=== PATIENT | female | born 1960 | race African-American/Black ===

== ENCOUNTER 2019-07-07 17:26 | Emergency (ER) | payer OTHER ==
[~2019-07-07] VITALS: Ht 162.6 cm; Wt 86.2 kg
--- OUTSIDE RECORDS SUMMARY | 2019-07-07 17:31 | XMS REPORT ---
[facility] Address Unknown Phone Unavailable Care Team Providers Care Lead Programmer Name Role Phone UNKNOWN, REFFERING PP Unavailable REINALDO, JOSE MIGUEL Unavailable Unavailable Payers Payer Name Policy Type Policy Number Effective Date Expiration Date Problems This patient has no known problems. Allergies, Adverse Reactions, Alerts Allergy Name Allergy Type Status Severity Reaction(s) Onset Date Inactive Date Treating Clinician Comments No Known Drug Allergies DA Active U 2019-07-07 00:00:00 No Known Drug Allergies DA Active U 2019-05-01 00:00:00 codeine DA Active U 2014-06-08 00:00:00 Medications This patient has no known medications. Encounters Start Date/Time End Date/Time Encounter Type Admission Type Attending Clinicians Care Facility Care Department Encounter ID 2019-07-03 01:49:27 2019-07-03 01:49:27 Emergency [facility] [id number] 2019-06-30 20:01:50 2019-06-30 20:01:50 Emergency [facility] [id number] 2019-06-30 07:55:39 2019-06-30 07:55:39 Emergency [facility] [id number] 2019-06-29 11:36:25 2019-06-29 11:36:25 Emergency [facility] [id number] 2019-06-28 16:02:38 2019-06-28 16:02:38 Emergency [facility] [id number] 2019-06-28 15:42:14 2019-06-28 15:42:14 Emergency [facility] [id number] 2019-06-28 08:36:00 2019-06-28 08:36:00 [facility] [id number] 2019-06-27 17:09:00 2019-06-27 17:09:00 [facility] [id number] 2019-06-27 00:02:33 2019-06-27 00:02:33 Emergency [facility] [id number] 2019-06-26 01:04:43 2019-06-26 01:04:43 Emergency [facility] [id number] 2019-06-25 16:23:59 2019-06-25 16:23:59 Emergency [facility] [id number] 2019-06-24 13:08:51 2019-06-24 13:08:51 [facility] [id number] 2019-06-24 12:01:59 2019-06-24 12:01:59 Emergency [facility] [id number] 2019-06-23 08:15:00 2019-06-23 08:15:00 [facility] [id number] 2019-06-22 13:01:19 2019-06-22 13:01:19 Emergency [facility] [id number] 2019-06-20 22:39:19 2019-06-20 22:39:19 [facility] [id number] 2019-06-20 22:03:12 2019-06-20 22:03:12 Emergency [facility] [id number] 2019-06-12 01:30:44 2019-06-12 01:30:44 [facility] [id number] 2019-06-11 11:27:07 2019-06-11 11:27:07 [facility] [id number] 2019-06-11 10:49:54 2019-06-11 10:49:54 Emergency [facility] [id number] 2019-06-10 23:24:38 2019-06-10 23:24:38 Emergency [facility] [id number] 2019-06-04 18:18:43 2019-06-04 18:18:43 Emergency [facility] [id number] 2019-06-04 08:39:05 2019-06-04 08:39:05 [facility] [id number] 2019-05-19 03:01:54 2019-05-19 03:01:54 Emergency [facility] [id number] 2019-05-19 01:22:44 2019-05-19 01:22:44 Emergency [facility] [id number] 2019-05-18 23:23:57 2019-05-18 23:23:57 Emergency [facility] [id number] 2019-05-09 16:07:00 2019-05-09 16:07:00 Emergency [facility] [id number] 2019-05-09 00:05:32 2019-05-09 00:05:32 Emergency [facility] [id number] 2019-04-30 15:23:36 2019-04-30 15:23:36 Emergency [facility] [id number] 2019-04-30 13:21:58 2019-04-30 13:21:58 Emergency [facility] [id number] 2019-04-30 13:03:53 2019-04-30 13:03:53 Emergency [facility] [id number] 2019-04-24 04:28:39 2019-04-24 04:28:39 Emergency [facility] [id number] 2019-04-24 02:43:50 2019-04-24 02:43:50 Emergency [facility] [id number] 2019-04-23 00:00:00 2019-04-23 00:00:00 Outpatient [facility] [id number] 2019-04-18 09:02:02 2019-04-18 09:02:02 Emergency [facility] [id number] 2019-04-18 08:07:03 2019-04-18 08:07:03 Emergency [facility] [id number] 2019-04-13 03:58:36 2019-04-13 03:58:36 Emergency [facility] [id number] 2019-04-13 00:33:12 2019-04-13 00:33:12 Emergency [facility] [id number] 2019-04-01 01:11:51 2019-04-01 01:11:51 Emergency [facility] [id number] 2019-03-31 21:38:40 2019-03-31 21:38:40 Emergency [facility] [id number] 2019-03-08 01:08:46 2019-03-08 01:08:46 Emergency [facility] [id number] 2019-03-08 00:10:58 2019-03-08 00:10:58 Emergency [facility] [id number] 2019-02-15 02:28:07 2019-02-15 02:28:07 Emergency [facility] [id number] 2019-02-15 01:19:12 2019-02-15 01:19:12 [facility] [id number] 2018-10-09 05:57:53 2018-10-09 05:57:53 Emergency [facility] [id number] 2018-10-09 03:58:35 2018-10-09 03:58:35 [facility] [id number] 2017-11-07 20:16:00 2017-11-07 20:16:00 Emergency [facility] [id number] Results Test Description Test Time Test Comments Text Results Atomic Results Result Comments B-TYPE NATRIURETIC PEPTIDE 2019-07-07 10:44:00 B-TYPE NATRIURETIC PEPTIDE (test code=BNP) 29.71 pgram/mL 0-100 BASIC METABOLIC [id number] 09:44:00* Test Item Value Reference Range Comments SODIUM (test code=NA) 143 mmol/L 136-145 POTASSIUM (test code=K) 4.3 mmol/L 3.5-5.1 CHLORIDE (test code=CL) 111.0 mmol/L 98-107 CARBON DIOXIDE (test code=CO2) 27.0 mmol/L 21-32 ANION GAP (test code=GAP) 9.3 10-20 GLUCOSE (test code=GLU) 82 mg/dL 74-106 BLOOD UREA NITROGEN (test code=BUN) 16 mg/dL 7-18 GLOMERULAR FILTRATION RATE (test code=GFR) > 60 mL/min >=60 Estimated GFR by using Modified MDRD formula.Chronic kidney disease is defined as either kidney damageor GFR <60 mL/min/1.73 m2 for >3 months. CREATININE (test code=CREAT) 1.00 mg/dL 0.55-1.02 Note change in reference range due to change in reagent. BUN/CREATININE RATIO (test code=BUN/CREA) 16.0 10-20 CALCIUM (test code=CA) 8.8 mg/dL 8.5-10.1 [id number] 09:44:00* Test Item Value Reference Range Comments TROPONIN-I (test code=TROPI) <0.015 ng/mL 0-0.045 CBC W/O [id number] 09:21:00* Test Item Value Reference Range Comments WHITE BLOOD CELL (test code=WBC) 4.8 K/mm3 4.5-12.5 RED BLOOD CELL (test code=RBC) 2.80 mill/mm3 3.7-5.2 HEMOGLOBIN (test code=HGB) 8.1 gram/dL 11.5-15.5 HEMATOCRIT (test code=HCT) 27.3 % 36.0-46.0 MEAN CELL VOLUME (test code=MCV) 97.5 fL 80-98 MEAN CELL HGB (test code=MCH) 28.9 picogram 27.0-33.0 MEAN CELL HGB CONCETRATION (test code=MCHC) 29.7 gram/dL 33.0-36.0 RED CELL DISTRIBUTION WIDTH (test code=RDW) 13.3 % 11.6-16.2 PLATELET COUNT (test code=PLT) 170 K/mm3 150-450 MEAN PLATELET VOLUME (test code=MPV) 10.3 fL 6.7-11.0 BASIC METABOLIC [id number] 09:10:00* Test Item Value Reference Range Comments SODIUM (test code=NA) 143 mmol/L 136-145 POTASSIUM (test code=K) 4.3 mmol/L 3.5-5.1 CHLORIDE (test code=CL) 111.0 mmol/L 98-107 CARBON DIOXIDE (test code=CO2) mmol/L 21-32 ANION GAP (test code=GAP) 10-20 GLUCOSE (test code=GLU) mg/dL 74-106 BLOOD UREA NITROGEN (test code=BUN) mg/dL 7-18 GLOMERULAR FILTRATION RATE (test code=GFR) mL/min >=60 CREATININE (test code=CREAT) mg/dL 0.55-1.02 BUN/CREATININE RATIO (test code=BUN/CREA) 10-20 CALCIUM (test code=CA) mg/dL 8.5-10.1 [id number] 09:10:00* Test Item Value Reference Range Comments TROPONIN-I (test code=TROPI) ng/mL 0-0.045 - XR CHEST 1 [id number] 08:50:00 FAX: Domingo Ramos [phone] [place]: [address]: REG Name: VANESSA AMAYA [facility] : [birth year] Age/S: 58/F [address] [facility] Unit #: [id number] Loc: [place] [address] Phys: Domingo Frazier MD Acct: [id number] Dis Date: Status: REG ER PHONE #: [phone] Exam Date: 07/07/2019 08 FAX #: [phone] Reason: Shortness of Breath EXAMS: CPT CODE: [id number] XR CHEST 1 V 36362 REASON FOR EXAM: Shortness of Breath Exam Order Date: 07/07/2019 8:17 AM Ordering M.D.: Domingo Frazier MD PROCEDURE: - XR CHEST 1 V COMPARISON: Frontal chest radiograph May 12, 2019 FINDINGS: The lungs are clear other than mild subsegmental atelectasis in the bases. There is no pleural effusion or pneumothorax. Pulmonary vascula rity is within normal limits. Cardiomediastinal silhouette is norm al in size for technique. The mediastinal contours are within normal limit s. Degenerative changes are present in the spine. Th e visualized upper abdomen is within normal limits. IMPR ESSION: No acute cardiopulmonary process. at 0850 Reported and signed by: Sergio Lopez MD CC: Domingo Frazier MD Technologist: Annette Clement(R); Mady Morgan RT(R) Trnscrd Date/Time/By: 07/07/2019 (0850) : By: [email or web address] Orig Print D /T: S: 07/07/2019 (0753) PAGE 1 S igned Report Blood [id number] 21:01:31No growth at 5 days.Blood [id number] 21:01:31No growth at 5 days.Pathology Review of Peripheral [id number] 14:32:35.Manual [id number] 14:28:59* Test Item Value Reference Range Comments Segs Man (test code=Segs Man) 32.0 % 36.0-70.0 Band Man (test code=Band Man) 0.0 % 0.0-6.0 Lymph Man (test code=Lymph Man) 51.0 % 12.0-44.0 Monocyte Man (test code=Monocyte Man) 9.0 % 0.0-11.0 Eos Man (test code=Eos Man) 8.0 % 0.0-7.0 Basophil Man (test code=Basophil Man) 0.0 0.0-2.0 Neut Man Abs (test code=Neut Man Abs) 1.2 x10 1.6-7.4 Lymph Man Abs (test code=Lymph Man Abs) 2.0 x10 0.5-4.6 Hendry Man Abs (test code=Hendry Man Abs) 0.4 x10 0.0-1.2 Eos Man Abs (test code=Eos Man Abs) 0.31 x10 0.00-0.74 Baso Man Abs (test code=Baso Man Abs) 0.00 x10 0.00-0.21 RBC Morph (test code=RBC Morph) As Indicated Normal Hypochromia (test code=Hypochromia) 1+ None Seen Anisocyte (test code=Anisocyte) None None Microcyte (test code=Microcyte) None Seen None Seen Macrocyte (test code=Macrocyte) None Seen None Seen Poik (test code=Poik) None Seen None Seen Polychrom (test code=Polychrom) None Seen None Seen Acanthocyte (test code=Acanthocyte) None Seen None Seen Baso Stippling RBC (test code=Baso Stippling RBC) None Seen None Seen Schistocytes (test code=Schistocytes) 1+ None Seen Plt Estimation (test code=Plt Estimation) Normal Normal IG [id number] 14:28:59* Test Item Value Reference Range Comments IG (test code=IG) 0.0 % 0.0-5.0 IG Abs (test code=IG Abs) 0 x10 Manual [id number] 14:28:59* Test Item Value Reference Range Comments Segs Man (test code=Segs Man) 32.0 % 36.0-70.0 Band Man (test code=Band Man) 0.0 % 0.0-6.0 Lymph Man (test code=Lymph Man) 51.0 % 12.0-44.0 Monocyte Man (test code=Monocyte Man) 9.0 % 0.0-11.0 Eos Man (test code=Eos Man) 8.0 % 0.0-7.0 Basophil Man (test code=Basophil Man) 0.0 0.0-2.0 Neut Man Abs (test code=Neut Man Abs) 1.2 x10 1.6-7.4 Lymph Man Abs (test code=Lymph Man Abs) 2.0 x10 0.5-4.6 Hendry Man Abs (test code=Hendry Man Abs) 0.4 x10 0.0-1.2 Eos Man Abs (test code=Eos Man Abs) 0.31 x10 0.00-0.74 Baso Man Abs (test code=Baso Man Abs) 0.00 x10 0.00-0.21 RBC Morph (test code=RBC Morph) As Indicated Normal Hypochromia (test code=Hypochromia) 1+ None Seen Anisocyte (test code=Anisocyte) None None Microcyte (test code=Microcyte) None Seen None Seen Macrocyte (test code=Macrocyte) None Seen None Seen Poik (test code=Poik) None Seen None Seen Polychrom (test code=Polychrom) None Seen None Seen Acanthocyte (test code=Acanthocyte) None Seen None Seen Baso Stippling RBC (test code=Baso Stippling RBC) None Seen None Seen Schistocytes (test code=Schistocytes) 1+ None Seen Plt Estimation (test code=Plt Estimation) Normal Normal Path Rev (test code=Path Rev) Not Indicated Drugs of Abuse Urine [id number] 13:55:36* Test Item Value Reference Range Comments Amphetamine Screen Ur (test code=Amphetamine Screen Ur) Negative Negative For diagnostic purposes only. Positive results should always be assessed in conjunction with a patient's medical history. Barbiturate Screen Ur (test code=Barbiturate Screen Ur) Negative Negative Benzodiazepines Ur (test code=Benzodiazepines Ur) Negative Negative Cocaine Screen Ur (test code=Cocaine Screen Ur) POSITIVE Negative U Methadone (test code=U Methadone) Negative Negative Opiate Screen Ur (test code=Opiate Screen Ur) Negative Negative U PCP Scrn (test code=U PCP Scrn) Negative Negative U Propoxyphene (test code=U Propoxyphene) Negative Negative Cannabinoid Screen Ur (test code=Cannabinoid Screen Ur) Negative Negative Complete Blood Count with [id number] 13:53:50* Test Item Value Reference Range Comments WBC (test code=WBC) 3.9 x10 4.4-10.5 RBC (test code=RBC) 3.09 x10 3.75-5.20 Hgb (test code=Hgb) 8.9 g/dL 12.2-14.8 MCV (test code=MCV) 92.90 fL 80.00-100.00 Hct (test code=Hct) 28.7 % 36.5-44.4 MCHC (test code=MCHC) 31.00 g/dL 32.00-37.50 RDW CV (test code=RDW CV) 13.3 % 11.5-14.5 MCH (test code=MCH) 28.8 pg 27.0-32.5 Platelets (test code=Platelets) 199.0 x10 140.0-440.0 MPV (test code=MPV) 10.7 fL Slide Review (test code=Slide Review) Manual Auto Result created by [email or web address]_SLIDE_REV_AUTO [email or web address] nRBC (test code=nRBC) 0 NRBC Abs (test code=NRBC Abs) 0.00 x10 Pos Diff XN (test code=Pos Diff XN) A IPF (test code=IPF) 0 % Urinalysis [id number] 13:53:41* Test Item Value Reference Range Comments UA WBC (test code=UA WBC) 6-10 0-5 UA RBC (test code=UA RBC) 0-5 0-5 UA Bacteria (test code=UA Bacteria) Moderate UA Squam Epithelial (test code=UA Squam Epithelial) 30-50 Urinalysis with Microscopic if [id number] 13:45:03* Test Item Value Reference Range Comments UA Color (test code=UA Color) YELLO Yellow UA Appear (test code=UA Appear) CLEAR Clear UA pH (test code=UA pH) 5 UA Spec Grav (test code=UA Spec Grav) 1.008 1.001-1.035 UA Glucose (test code=UA Glucose) NEG Negative UA Ketones (test code=UA Ketones) NEG Negative UA Blood (test code=UA Blood) NEG Negative UA Protein (test code=UA Protein) NEG Negative UA Bili (test code=UA Bili) NEG Negative UA Urobilinogen (test code=UA Urobilinogen) 0.2 mg/dL UA Nitrite (test code=UA Nitrite) NEG Negative UA Leuk Est (test code=UA Leuk Est) 500 cells/mcL Negative UA Micro Ind? (test code=UA Micro Ind?) Indicated Not Indicated Result created by rule GL_SJM_UA_MICRO_IND Comprehensive Metabolic [id number] 13:43:17* Test Item Value Reference Range Comments Sodium Level (test code=Sodium Level) 145.0 mmol/L 135.0-145.0 Potassium Level (test code=Potassium Level) 4.4 mmol/L 3.5-5.1 Chloride Level (test code=Chloride Level) 110 mmol/L 98-105 CO2 (test code=CO2) 26 mmol/L 22-29 Anion Gap (test code=Anion Gap) 9 mmol/L 7-16 BUN (test code=BUN) 8.70 mg/dL 6.00-20.00 Creatinine Level (test code=Creatinine Level) 1.10 mg/dL 0.50-0.90 BUN/Creat Ratio (test code=BUN/Creat Ratio) 8 Glucose Level (test code=Glucose Level) 83 mg/dL 70-115 Calcium Level (test code=Calcium Level) 8.5 mg/dL 8.3-10.5 Alk Phos (test code=Alk Phos) 82 U/L 35-104 Bilirubin Total (test code=Bilirubin Total) 0.6 mg/dL 0.1-0.9 Albumin Level (test code=Albumin Level) 3.2 g/dL 3.5-5.2 Protein Total (test code=Protein Total) 6.3 g/dL 6.4-8.3 ALT (test code=ALT) 133 U/L 1-33 AST (test code=AST) 255 U/L 1-32 Globulin (test code=Globulin) 3.1 g/dL 2.9-3.1 A/G Ratio (test code=A/G Ratio) 1.0 ratio Comprehensive Metabolic [id number] 13:43:17* Test Item Value Reference Range Comments Sodium Level (test code=Sodium Level) 145.0 mmol/L 135.0-145.0 Potassium Level (test code=Potassium Level) 4.4 mmol/L 3.5-5.1 Chloride Level (test code=Chloride Level) 110 mmol/L 98-105 CO2 (test code=CO2) 26 mmol/L 22-29 Anion Gap (test code=Anion Gap) 9 mmol/L 7-16 BUN (test code=BUN) 8.70 mg/dL 6.00-20.00 Creatinine Level (test code=Creatinine Level) 1.10 mg/dL 0.50-0.90 BUN/Creat Ratio (test code=BUN/Creat Ratio) 8 Glucose Level (test code=Glucose Level) 83 mg/dL 70-115 Calcium Level (test code=Calcium Level) 8.5 mg/dL 8.3-10.5 Alk Phos (test code=Alk Phos) 82 U/L 35-104 Bilirubin Total (test code=Bilirubin Total) 0.6 mg/dL 0.1-0.9 Albumin Level (test code=Albumin Level) 3.2 g/dL 3.5-5.2 Protein Total (test code=Protein Total) 6.3 g/dL 6.4-8.3 ALT (test code=ALT) 133 U/L 1-33 AST (test code=AST) 255 U/L 1-32 Globulin (test code=Globulin) 3.1 g/dL 2.9-3.1 A/G Ratio (test code=A/G Ratio) 1.0 ratio eGFR AA (test code=eGFR AA) >60 mL/min/1.73 m2 eGFR (estimated Glomerular Filtration Rate) is an estimated value, calculated from the patient's serum creatinine using the MDRD equation. It is NOT the patient's actual GFR. The eGFR provides a more clinically useful measure of kidney disease than serum creatinine alone.This calculation takes sex and race into account, if the information is provided. If the race is not provided, and the patient is -[place], multiply by 1.212. If sex is not provided, and the patient is female, multiply by 0.742. Results for patients <18 years of age have not been validated by the MDRD study and should be interpreted with caution. eGFR Result Interpretation:eGFR > or=60 is in the Normal RangeeGFR < 60 may mean kidney diseaseeGFR < 15 may mean kidney failure Ranges recommended by the National Kidney Foundation, http://nkdep.nih.gov Alcohol [id number] 13:43:17* Test Item Value Reference Range Comments Ethanol Level (test code=Ethanol Level) <0.00 g/dL 0.00-0.01 Intoxicated 0.080 g/dL or more Ethanol Inst (test code=Ethanol Inst) <0 Comprehensive Metabolic [id number] 13:43:17* Test Item Value Reference Range Comments Sodium Level (test code=Sodium Level) 145.0 mmol/L 135.0-145.0 Potassium Level (test code=Potassium Level) 4.4 mmol/L 3.5-5.1 Chloride Level (test code=Chloride Level) 110 mmol/L 98-105 CO2 (test code=CO2) 26 mmol/L 22-29 Anion Gap (test code=Anion Gap) 9 mmol/L 7-16 BUN (test code=BUN) 8.70 mg/dL 6.00-20.00 Creatinine Level (test code=Creatinine Level) 1.10 mg/dL 0.50-0.90 BUN/Creat Ratio (test code=BUN/Creat Ratio) 8 Glucose Level (test code=Glucose Level) 83 mg/dL 70-115 Calcium Level (test code=Calcium Level) 8.5 mg/dL 8.3-10.5 Alk Phos (test code=Alk Phos) 82 U/L 35-104 Bilirubin Total (test code=Bilirubin Total) 0.6 mg/dL 0.1-0.9 Albumin Level (test code=Albumin Level) 3.2 g/dL 3.5-5.2 Protein Total (test code=Protein Total) 6.3 g/dL 6.4-8.3 ALT (test code=ALT) 133 U/L 1-33 AST (test code=AST) 255 U/L 1-32 Globulin (test code=Globulin) 3.1 g/dL 2.9-3.1 A/G Ratio (test code=A/G Ratio) 1.0 ratio eGFR AA (test code=eGFR AA) >60 mL/min/1.73 m2 eGFR (estimated Glomerular Filtration Rate) is an estimated value, calculated from the patient's serum creatinine using the MDRD equation. It is NOT the patient's actual GFR. The eGFR provides a more clinically useful measure of kidney disease than serum creatinine alone.This calculation takes sex and race into account, if the information is provided. If the race is not provided, and the patient is -[place], multiply by 1.212. If sex is not provided, and the patient is female, multiply by 0.742. Results for patients <18 years of age have not been validated by the MDRD study and should be interpreted with caution. eGFR Result Interpretation:eGFR > or=60 is in the Normal RangeeGFR < 60 may mean kidney diseaseeGFR < 15 may mean kidney failure Ranges recommended by the National Kidney Foundation, http://nkdep.nih.gov eGFR Non-AA (test code=eGFR Non-AA) 51.38 mL/min/1.73 m2 eGFR (estimated Glomerular Filtration Rate) is an estimated value, calculated from the patient's serum creatinine using the MDRD equation. It is NOT the patient's actual GFR. The eGFR provides a more clinically useful measure of kidney disease than serum creatinine alone.This calculation takes sex and race into account, if the information is provided. If the race is not provided, and the patient is -[place], multiply by 1.212. If sex is not provided, and the patient is female, multiply by 0.742. Results for patients <18 years of age have not been validated by the MDRD study and should be interpreted with caution. eGFR Result Interpretation:eGFR > or=60 is in the Normal RangeeGFR < 60 may mean kidney diseaseeGFR < 15 may mean kidney failure Ranges recommended by the National Kidney Foundation, http://nkdep.nih.gov Troponin [id number] 01:14:13* Test Item Value Reference Range Comments Troponin-T (test code=Troponin-T) 26.180 ng/L 0.000-14.000 Critical results called to jessica cm at 06/09/2019 01:14:06 CDT by og. Read back and verified? yesThe CV of the assay at 99th percentile for both male and female patient population is < 10%. A rise and fall in ROHITH with at least one value above the 99th percentile with clinical evidence of myocardial ischemia would support a diagnosis of AMI. A delta of at least 20% is recommended to access acute changes in results above the 99th percentile in serial measurements. Stable ROHITH levels (<20%) delta above the 99th percentile URL would support a diagnosis of chronic myocardial injury. IG [id number] 20:59:38* Test Item Value Reference Range Comments IG (test code=IG) 0.2 % 0.0-5.0 IG Abs (test code=IG Abs) 0 x10 Manual [id number] 20:59:16* Test Item Value Reference Range Comments Segs Man (test code=Segs Man) 22.0 % 36.0-70.0 Lymph Man (test code=Lymph Man) 59.0 % 12.0-44.0 Monocyte Man (test code=Monocyte Man) 7.0 % 0.0-11.0 Eos Man (test code=Eos Man) 11.0 % 0.0-7.0 Basophil Man (test code=Basophil Man) 1.0 0.0-2.0 RBC Morph (test code=RBC Morph) As Indicated Normal Elliptocyte (test code=Elliptocyte) 1+ None Seen Schistocytes (test code=Schistocytes) 1+ None Seen Plt Estimation (test code=Plt Estimation) Normal Normal Manual [id number] 20:59:16* Test Item Value Reference Range Comments Segs Man (test code=Segs Man) 22.0 % 36.0-70.0 Lymph Man (test code=Lymph Man) 59.0 % 12.0-44.0 Monocyte Man (test code=Monocyte Man) 7.0 % 0.0-11.0 Eos Man (test code=Eos Man) 11.0 % 0.0-7.0 Basophil Man (test code=Basophil Man) 1.0 0.0-2.0 Neut Man Abs (test code=Neut Man Abs) 0.9 x10 1.6-7.4 Lymph Man Abs (test code=Lymph Man Abs) 2.5 x10 0.5-4.6 Hendry Man Abs (test code=Hendry Man Abs) 0.3 x10 0.0-1.2 Eos Man Abs (test code=Eos Man Abs) 0.46 x10 0.00-0.74 Baso Man Abs (test code=Baso Man Abs) 0.04 x10 0.00-0.21 RBC Morph (test code=RBC Morph) As Indicated Normal Elliptocyte (test code=Elliptocyte) 1+ None Seen Schistocytes (test code=Schistocytes) 1+ None Seen Plt Estimation (test code=Plt Estimation) Normal Normal Troponin [id number] 20:34:49* Test Item Value Reference Range Comments Troponin-T (test code=Troponin-T) 31.260 ng/L 0.000-14.000 Critical results called to Tabatha Cloud at 06/08/2019 20:34:40 CDT by mata. Read back and verified? yesThe CV of the assay at 99th percentile for both male and female patient population is < 10%. A rise and fall in ROHITH with at least one value above the 99th percentile with clinical evidence of myocardial ischemia would support a diagnosis of AMI. A delta of at least 20% is recommended to access acute changes in results above the 99th percentile in serial measurements. Stable ROHITH levels (<20%) delta above the 99th percentile URL would support a diagnosis of chronic myocardial injury. Prothrombin Time and [id number] 20:22:40* Test Item Value Reference Range Comments Prothrombin Time (test code=Prothrombin Time) 13.4 seconds 9.8-13.4 INR (test code=INR) 1.2 ratio 0.6-1.2 Partial Thromboplastin [id number] 20:22:40* Test Item Value Reference Range Comments Partial Thromboplastin Time (test code=Partial Thromboplastin Time) 31.30 seconds 24.39-37.25 CT Brain/Head w/o [id number] 20:22:07Patient: VANESSA DUGGAN Date/Time06/08/2019 20:10 CDTReason for ExamAltered level of kvezogkgagxwyEvcepiJ69JZ HEAD WITHOUT CONTRASTHISTORY: Altered level of consciousnessTECHNIQUE: Axial CT images from the skull base to the vertex without intravenous contrast. Coronal and sagittal reformatted images were created from the data set.One or more of the following dose reduction techniques were used: Automated exposure control, adjustment of the mA and/or kV according to patient size, and/or iterative r econstruction.COMPARISON: 06/01/2019FINDINGS:Patchy white matter hypodensities. No evidence of acute infarction, intracranial hemorrhage, mass or mass effect, or abnormal extra-axial fluid collection.The ventricles are normal in size, shape a nd position.The density in the larger dural sinuses is grossly normal.The osseou s structures and orbits have no significant abnormalities. The visualized paran kierra sinuses and mastoid air cells are predominantly clear.IMPRESSION:Mild white matter microvascular disease.No acute intracranial abnormality. Final *Dictated by: MD Perico, Alison DT/TM: 06/08/2019 8:20 pmSigned by: MD River VivekSigned (Electronic Signature): 06/08/2019 8:22 pmXR Chest 1 View [id number] 20:18:19Patient: VANESSA DUGGAN Date/Time06/08/2019 20:12 CDTReason for ExamCHF (Congestive Heart Failure), [id number]: XR Chest 1 View FrontalHISTORY: CHF (Congestive Heart Failure), knownCOMPARISON: 06/08/2019FINDINGS:The lungs are clear. No pleural effusion or pneumothorax. The cardiac silhouette is within normal limits. No acute osseous abnormalities.IMPRESSION:No acute cardiopulmonary disease. Final Dictated by: MD River VivekDictated DT/TM: 06/08/2019 8:17 pmSigned by: MD River VivekSigned (Electronic Signature): 06/08/2019 8:18 pmLipase [id number] 20:11:06* Test Item Value Reference Range Comments Lipase Level (test code=Lipase Level) 29 U/L 13-60 Alcohol [id number] 20:11:06* Test Item Value Reference Range Comments Ethanol Level (test code=Ethanol Level) <0.00 g/dL 0.00-0.01 Intoxicated 0.080 g/dL or more Ethanol Inst (test code=Ethanol Inst) <0 Pro B Natriuretic [id number] 20:11:06* Test Item Value Reference Range Comments NT-proBNP (test code=NT-proBNP) 303 pg/mL 0-124 Comprehensive Metabolic [id number] 20:11:05* Test Item Value Reference Range Comments Sodium Level (test code=Sodium Level) 146.0 mmol/L 135.0-145.0 Potassium Level (test code=Potassium Level) 4.3 mmol/L 3.5-5.1 Chloride Level (test code=Chloride Level) 111 mmol/L 98-105 CO2 (test code=CO2) 26 mmol/L 22-29 Anion Gap (test code=Anion Gap) 9 mmol/L 7-16 BUN (test code=BUN) 10.10 mg/dL 6.00-20.00 Creatinine Level (test code=Creatinine Level) 1.20 mg/dL 0.50-0.90 BUN/Creat Ratio (test code=BUN/Creat Ratio) 8 Glucose Level (test code=Glucose Level) 84 mg/dL 70-115 Calcium Level (test code=Calcium Level) 8.6 mg/dL 8.3-10.5 Alk Phos (test code=Alk Phos) 82 U/L 35-104 Bilirubin Total (test code=Bilirubin Total) 0.5 mg/dL 0.1-0.9 Albumin Level (test code=Albumin Level) 3.2 g/dL 3.5-5.2 Protein Total (test code=Protein Total) 6.4 g/dL 6.4-8.3 ALT (test code=ALT) 118 U/L 1-33 AST (test code=AST) 246 U/L 1-32 Globulin (test code=Globulin) 3.2 g/dL 2.9-3.1 A/G Ratio (test code=A/G Ratio) 1.0 ratio Comprehensive Metabolic [id number] 20:11:05* Test Item Value Reference Range Comments Sodium Level (test code=Sodium Level) 146.0 mmol/L 135.0-145.0 Potassium Level (test code=Potassium Level) 4.3 mmol/L 3.5-5.1 Chloride Level (test code=Chloride Level) 111 mmol/L 98-105 CO2 (test code=CO2) 26 mmol/L 22-29 Anion Gap (test code=Anion Gap) 9 mmol/L 7-16 BUN (test code=BUN) 10.10 mg/dL 6.00-20.00 Creatinine Level (test code=Creatinine Level) 1.20 mg/dL 0.50-0.90 BUN/Creat Ratio (test code=BUN/Creat Ratio) 8 Glucose Level (test code=Glucose Level) 84 mg/dL 70-115 Calcium Level (test code=Calcium Level) 8.6 mg/dL 8.3-10.5 Alk Phos (test code=Alk Phos) 82 U/L 35-104 Bilirubin Total (test code=Bilirubin Total) 0.5 mg/dL 0.1-0.9 Albumin Level (test code=Albumin Level) 3.2 g/dL 3.5-5.2 Protein Total (test code=Protein Total) 6.4 g/dL 6.4-8.3 ALT (test code=ALT) 118 U/L 1-33 AST (test code=AST) 246 U/L 1-32 Globulin (test code=Globulin) 3.2 g/dL 2.9-3.1 A/G Ratio (test code=A/G Ratio) 1.0 ratio eGFR AA (test code=eGFR AA) 56 mL/min/1.73 m2 eGFR (estimated Glomerular Filtration Rate) is an estimated value, calculated from the patient's serum creatinine using the MDRD equation. It is NOT the patient's actual GFR. The eGFR provides a more clinically useful measure of kidney disease than serum creatinine alone.This calculation takes sex and race into account, if the information is provided. If the race is not provided, and the patient is -[place], multiply by 1.212. If sex is not provided, and the patient is female, multiply by 0.742. Results for patients <18 years of age have not been validated by the MDRD study and should be interpreted with caution. eGFR Result Interpretation:eGFR > or=60 is in the Normal RangeeGFR < 60 may mean kidney diseaseeGFR < 15 may mean kidney failure Ranges recommended by the National Kidney Foundation, http://nkdep.nih.gov Comprehensive Metabolic [id number] 20:11:05* Test Item Value Reference Range Comments Sodium Level (test code=Sodium Level) 146.0 mmol/L 135.0-145.0 Potassium Level (test code=Potassium Level) 4.3 mmol/L 3.5-5.1 Chloride Level (test code=Chloride Level) 111 mmol/L 98-105 CO2 (test code=CO2) 26 mmol/L 22-29 Anion Gap (test code=Anion Gap) 9 mmol/L 7-16 BUN (test code=BUN) 10.10 mg/dL 6.00-20.00 Creatinine Level (test code=Creatinine Level) 1.20 mg/dL 0.50-0.90 BUN/Creat Ratio (test code=BUN/Creat Ratio) 8 Glucose Level (test code=Glucose Level) 84 mg/dL 70-115 Calcium Level (test code=Calcium Level) 8.6 mg/dL 8.3-10.5 Alk Phos (test code=Alk Phos) 82 U/L 35-104 Bilirubin Total (test code=Bilirubin Total) 0.5 mg/dL 0.1-0.9 Albumin Level (test code=Albumin Level) 3.2 g/dL 3.5-5.2 Protein Total (test code=Protein Total) 6.4 g/dL 6.4-8.3 ALT (test code=ALT) 118 U/L 1-33 AST (test code=AST) 246 U/L 1-32 Globulin (test code=Globulin) 3.2 g/dL 2.9-3.1 A/G Ratio (test code=A/G Ratio) 1.0 ratio eGFR AA (test code=eGFR AA) 56 mL/min/1.73 m2 eGFR (estimated Glomerular Filtration Rate) is an estimated value, calculated from the patient's serum creatinine using the MDRD equation. It is NOT the patient's actual GFR. The eGFR provides a more clinically useful measure of kidney disease than serum creatinine alone.This calculation takes sex and race into account, if the information is provided. If the race is not provided, and the patient is -[place], multiply by 1.212. If sex is not provided, and the patient is female, multiply by 0.742. Results for patients <18 years of age have not been validated by the MDRD study and should be interpreted with caution. eGFR Result Interpretation:eGFR > or=60 is in the Normal RangeeGFR < 60 may mean kidney diseaseeGFR < 15 may mean kidney failure Ranges recommended by the National Kidney Foundation, http://nkdep.nih.gov eGFR Non-AA (test code=eGFR Non-AA) 46.47 mL/min/1.73 m2 eGFR (estimated Glomerular Filtration Rate) is an estimated value, calculated from the patient's serum creatinine using the MDRD equation. It is NOT the patient's actual GFR. The eGFR provides a more clinically useful measure of kidney disease than serum creatinine alone.This calculation takes sex and race into account, if the information is provided. If the race is not provided, and the patient is -[place], multiply by 1.212. If sex is not provided, and the patient is female, multiply by 0.742. Results for patients <18 years of age have not been validated by the MDRD study and should be interpreted with caution. eGFR Result Interpretation:eGFR > or=60 is in the Normal RangeeGFR < 60 may mean kidney diseaseeGFR < 15 may mean kidney failure Ranges recommended by the National Kidney Foundation, http://nkdep.nih.gov Complete Blood Count with [id number] 20:00:00* Test Item Value Reference Range Comments WBC (test code=WBC) 4.2 x10 4.4-10.5 RBC (test code=RBC) 2.89 x10 3.75-5.20 Hgb (test code=Hgb) 8.4 g/dL 12.2-14.8 Hct (test code=Hct) 26.9 % 36.5-44.4 MCV (test code=MCV) 93.10 fL 80.00-100.00 MCHC (test code=MCHC) 31.20 g/dL 32.00-37.50 RDW CV (test code=RDW CV) 13.5 % 11.5-14.5 MCH (test code=MCH) 29.1 pg 27.0-32.5 Platelets (test code=Platelets) 200.0 x10 140.0-440.0 MPV (test code=MPV) 11.2 fL Slide Review (test code=Slide Review) Manual Auto Result created by GL_SJM_SLIDE_REV_AUTO [email or web address]_RFLX nRBC (test code=nRBC) 0 NRBC Abs (test code=NRBC Abs) 0.00 x10 Pos Diff XN (test code=Pos Diff XN) A IPF (test code=IPF) 0 % Lactic Acid, Plasma (Venous)2019-06-08 19:59:57* Test Item Value Reference Range Comments Lactic Acid, Plasma (Venous) (test code=Lactic Acid, Plasma (Venous)) 1.1 mmol/L 0.5-1.9 Urine [id number] 08:16:10* Test Item Value Reference Range Comments ORGANISM (test code=ORGANISM) Enterococcus group D Ampicillin (test code=Amp) Ciprofloxacin (test code=Cipro) Gentamicin synergy (test code=Gent-Syn) Levofloxacin (test code=Levo) Linezolid (test code=Linez) Nitrofurantoin (test code=Nitro) Penicillin (test code=Pen) Streptomycin synergy (test code=Strep-Syn) Tetracycline (test code=Tetra) Vancomycin (test code=Vanc) ORGANISM (test code=ORGANISM1) Enterococcus group D Minocycline (test code=Adrian) Final Report (test code=Final Report) >=100,000 cfu/ml Enterococcus group D Vancomycin- Resistant entercocci Contact isolation recommended <10,000 cfu/mL Non-Lactose fermenting Gram Negative Bacilli C Urine Added by GL_SJM_UA_CUL_INDCreatine [id number] 15:56:09* Test Item Value Reference Range Comments CK (test code=CK) 56 U/L 26-192 Creatine Kinase MB [id number] 15:56:09* Test Item Value Reference Range Comments CKMB (test code=CKMB) <1.0 ng/mL 0.0-2.8 CKMB % (test code=CKMB %) <1.8 % 0.0-3.4 Urinalysis [id number] 15:52:05* Test Item Value Reference Range Comments UA WBC (test code=UA WBC) 6-10 0-5 UA RBC (test code=UA RBC) 0-5 0-5 UA Bacteria (test code=UA Bacteria) Moderate UA Squam Epithelial (test code=UA Squam Epithelial) TNTC UA Trichomonas (test code=UA Trichomonas) Few UA Hyal Cast (test code=UA Hyal Cast) 1-5 Drugs of Abuse Urine [id number] 15:45:36* Test Item Value Reference Range Comments Amphetamine Screen Ur (test code=Amphetamine Screen Ur) Negative Negative For diagnostic purposes only. Positive results should always be assessed in conjunction with a patient's medical history. Barbiturate Screen Ur (test code=Barbiturate Screen Ur) Negative Negative Benzodiazepines Ur (test code=Benzodiazepines Ur) Negative Negative Cocaine Screen Ur (test code=Cocaine Screen Ur) Negative Negative U Methadone (test code=U Methadone) Negative Negative Opiate Screen Ur (test code=Opiate Screen Ur) Negative Negative U PCP Scrn (test code=U PCP Scrn) Negative Negative U Propoxyphene (test code=U Propoxyphene) Negative Negative Cannabinoid Screen Ur (test code=Cannabinoid Screen Ur) Negative Negative XR Chest 1 View [id number] 15:24:16Patient: VANESSA DUGGAN Date/Time06/01/2019 15:23 CDTReason for ExamChest painReportChest one view AP 06/01/2019 3:24 PMCLINICAL HISTORY: Chest painCOMPARISON: 04/12/2019LOCATION: [id number]:The lungs are clear. Cardiomediastinal contours are within normal limits. The central pulmonary vasculature is not engorged.IMPRESSION:Unremarkable frontal chest radiograph. Final Dictated by: MD Mcclendon Timothy JDictated DT/TM: 06/01/2019 3:23 pmSigned by: MD Mcclendon Timothy JSigned (Electronic S ignature): 06/01/2019 3:24 pmUrinalysis with Culture, if [id number] 15:15:58* Test Item Value Reference Range Comments UA Color (test code=UA Color) YELLO Yellow UA Appear (test code=UA Appear) CLEAR Clear UA pH (test code=UA pH) 5 UA Spec Grav (test code=UA Spec Grav) 1.014 1.001-1.035 UA Glucose (test code=UA Glucose) NEG Negative UA Bili (test code=UA Bili) NEG Negative UA Ketones (test code=UA Ketones) NEG Negative UA Blood (test code=UA Blood) NEG Negative UA Protein (test code=UA Protein) NEG Negative UA Urobilinogen (test code=UA Urobilinogen) 0.2 mg/dL UA Nitrite (test code=UA Nitrite) NEG Negative UA Leuk Est (test code=UA Leuk Est) 500 cells/mcL Negative UA Micro Ind? (test code=UA Micro Ind?) Indicated Not Indicated Result created by rule GL_SJM_UA_MICRO_IND Manual [id number] 14:20:14* Test Item Value Reference Range Comments Segs Man (test code=Segs Man) 34.0 % 36.0-70.0 Band Man (test code=Band Man) 0.0 % 0.0-6.0 Lymph Man (test code=Lymph Man) 58.0 % 12.0-44.0 Monocyte Man (test code=Monocyte Man) 3.0 % 0.0-11.0 Eos Man (test code=Eos Man) 4.0 % 0.0-7.0 Basophil Man (test code=Basophil Man) 0.0 0.0-2.0 Lymph, Atyp Manual (test code=Lymph, Atyp Manual) 1.0 % 0.0-0.0 Neut Man Abs (test code=Neut Man Abs) 1.3 x10 1.6-7.4 Lymph Man Abs (test code=Lymph Man Abs) 2.2 x10 0.5-4.6 Hendry Man Abs (test code=Hendry Man Abs) 0.1 x10 0.0-1.2 Eos Man Abs (test code=Eos Man Abs) 0.15 x10 0.00-0.74 Baso Man Abs (test code=Baso Man Abs) 0.00 x10 0.00-0.21 RBC Morph (test code=RBC Morph) As Indicated Normal Hypochromia (test code=Hypochromia) 1+ None Seen Anisocyte (test code=Anisocyte) None None Microcyte (test code=Microcyte) None Seen None Seen Macrocyte (test code=Macrocyte) None Seen None Seen Poik (test code=Poik) None Seen None Seen Polychrom (test code=Polychrom) None Seen None Seen Acanthocyte (test code=Acanthocyte) None Seen None Seen Baso Stippling RBC (test code=Baso Stippling RBC) None Seen None Seen Elliptocyte (test code=Elliptocyte) 1+ None Seen Plt Estimation (test code=Plt Estimation) Normal Normal IG [id number] 14:20:14* Test Item Value Reference Range Comments IG (test code=IG) 0.0 % 0.0-5.0 IG Abs (test code=IG Abs) 0 x10 Complete Blood Count with [id number] 14:15:27* Test Item Value Reference Range Comments WBC (test code=WBC) 3.8 x10 4.4-10.5 RBC (test code=RBC) 3.14 x10 3.75-5.20 Hgb (test code=Hgb) 9.1 g/dL 12.2-14.8 Hct (test code=Hct) 30.1 % 36.5-44.4 MCV (test code=MCV) 95.90 fL 80.00-100.00 MCHC (test code=MCHC) 30.20 g/dL 32.00-37.50 RDW CV (test code=RDW CV) 13.3 % 11.5-14.5 MCH (test code=MCH) 29.0 pg 27.0-32.5 Platelets (test code=Platelets) 183.0 x10 140.0-440.0 MPV (test code=MPV) 10.1 fL Slide Review (test code=Slide Review) Manual Auto Result created by GL_SJM_SLIDE_REV_AUTO GL_SJM_XN_RFLX nRBC (test code=nRBC) 0 NRBC Abs (test code=NRBC Abs) 0.00 x10 Pos Diff XN (test code=Pos Diff XN) A Pos Morph XN (test code=Pos Morph XN) A IPF (test code=IPF) 0 % Troponin [id number] 14:13:54* Test Item Value Reference Range Comments Troponin-T (test code=Troponin-T) 24.370 ng/L 0.000-14.000 Critical results called to Cassi Lowery at 06/01/2019 14:13:37 CDT by mata. Read back and verified? yesThe CV of the assay at 99th percentile for both male and female patient population is < 10%. A rise and fall in ROHITH with at least one value above the 99th percentile with clinical evidence of myocardial ischemia would support a diagnosis of AMI. A delta of at least 20% is recommended to access acute changes in results above the 99th percentile in serial measurements. Stable ROHITH levels (<20%) delta above the 99th percentile URL would support a diagnosis of chronic myocardial injury. Comprehensive Metabolic [id number] 14:12:18* Test Item Value Reference Range Comments Sodium Level (test code=Sodium Level) 144.0 mmol/L 135.0-145.0 Potassium Level (test code=Potassium Level) 4.0 mmol/L 3.5-5.1 Chloride Level (test code=Chloride Level) 109 mmol/L 98-105 CO2 (test code=CO2) 24 mmol/L 22-29 Anion Gap (test code=Anion Gap) 11 mmol/L 7-16 BUN (test code=BUN) 13.60 mg/dL 6.00-20.00 Creatinine Level (test code=Creatinine Level) 1.30 mg/dL 0.50-0.90 BUN/Creat Ratio (test code=BUN/Creat Ratio) 10 Glucose Level (test code=Glucose Level) 86 mg/dL 70-115 Calcium Level (test code=Calcium Level) 9.1 mg/dL 8.3-10.5 Alk Phos (test code=Alk Phos) 61 U/L 35-104 Bilirubin Total (test code=Bilirubin Total) 0.5 mg/dL 0.1-0.9 Albumin Level (test code=Albumin Level) 3.7 g/dL 3.5-5.2 Protein Total (test code=Protein Total) 7.5 g/dL 6.4-8.3 ALT (test code=ALT) 27 U/L 1-33 AST (test code=AST) 55 U/L 1-32 Globulin (test code=Globulin) 3.8 g/dL 2.9-3.1 A/G Ratio (test code=A/G Ratio) 1.0 ratio Comprehensive Metabolic [id number] 14:12:18* Test Item Value Reference Range Comments Sodium Level (test code=Sodium Level) 144.0 mmol/L 135.0-145.0 Potassium Level (test code=Potassium Level) 4.0 mmol/L 3.5-5.1 Chloride Level (test code=Chloride Level) 109 mmol/L 98-105 CO2 (test code=CO2) 24 mmol/L 22-29 Anion Gap (test code=Anion Gap) 11 mmol/L 7-16 BUN (test code=BUN) 13.60 mg/dL 6.00-20.00 Creatinine Level (test code=Creatinine Level) 1.30 mg/dL 0.50-0.90 BUN/Creat Ratio (test code=BUN/Creat Ratio) 10 Glucose Level (test code=Glucose Level) 86 mg/dL 70-115 Calcium Level (test code=Calcium Level) 9.1 mg/dL 8.3-10.5 Alk Phos (test code=Alk Phos) 61 U/L 35-104 Bilirubin Total (test code=Bilirubin Total) 0.5 mg/dL 0.1-0.9 Albumin Level (test code=Albumin Level) 3.7 g/dL 3.5-5.2 Protein Total (test code=Protein Total) 7.5 g/dL 6.4-8.3 ALT (test code=ALT) 27 U/L 1-33 AST (test code=AST) 55 U/L 1-32 Globulin (test code=Globulin) 3.8 g/dL 2.9-3.1 A/G Ratio (test code=A/G Ratio) 1.0 ratio eGFR AA (test code=eGFR AA) 51 mL/min/1.73 m2 eGFR (estimated Glomerular Filtration Rate) is an estimated value, calculated from the patient's serum creatinine using the MDRD equation. It is NOT the patient's actual GFR. The eGFR provides a more clinically useful measure of kidney disease than serum creatinine alone.This calculation takes sex and race into account, if the information is provided. If the race is not provided, and the patient is -[place], multiply by 1.212. If sex is not provided, and the patient is female, multiply by 0.742. Results for patients <18 years of age have not been validated by the MDRD study and should be interpreted with caution. eGFR Result Interpretation:eGFR > or=60 is in the Normal RangeeGFR < 60 may mean kidney diseaseeGFR < 15 may mean kidney failure Ranges recommended by the National Kidney Foundation, http://nkdep.nih.gov Alcohol [id number] 14:12:18* Test Item Value Reference Range Comments Ethanol Level (test code=Ethanol Level) <0.00 g/dL 0.00-0.01 Intoxicated 0.080 g/dL or more Ethanol Inst (test code=Ethanol Inst) <0 Comprehensive Metabolic [id number] 14:12:18* Test Item Value Reference Range Comments Sodium Level (test code=Sodium Level) 144.0 mmol/L 135.0-145.0 Potassium Level (test code=Potassium Level) 4.0 mmol/L 3.5-5.1 Chloride Level (test code=Chloride Level) 109 mmol/L 98-105 CO2 (test code=CO2) 24 mmol/L 22-29 Anion Gap (test code=Anion Gap) 11 mmol/L 7-16 BUN (test code=BUN) 13.60 mg/dL 6.00-20.00 Creatinine Level (test code=Creatinine Level) 1.30 mg/dL 0.50-0.90 BUN/Creat Ratio (test code=BUN/Creat Ratio) 10 Glucose Level (test code=Glucose Level) 86 mg/dL 70-115 Calcium Level (test code=Calcium Level) 9.1 mg/dL 8.3-10.5 Alk Phos (test code=Alk Phos) 61 U/L 35-104 Bilirubin Total (test code=Bilirubin Total) 0.5 mg/dL 0.1-0.9 Albumin Level (test code=Albumin Level) 3.7 g/dL 3.5-5.2 Protein Total (test code=Protein Total) 7.5 g/dL 6.4-8.3 ALT (test code=ALT) 27 U/L 1-33 AST (test code=AST) 55 U/L 1-32 Globulin (test code=Globulin) 3.8 g/dL 2.9-3.1 A/G Ratio (test code=A/G Ratio) 1.0 ratio eGFR AA (test code=eGFR AA) 51 mL/min/1.73 m2 eGFR (estimated Glomerular Filtration Rate) is an estimated value, calculated from the patient's serum creatinine using the MDRD equation. It is NOT the patient's actual GFR. The eGFR provides a more clinically useful measure of kidney disease than serum creatinine alone.This calculation takes sex and race into account, if the information is provided. If the race is not provided, and the patient is -[place], multiply by 1.212. If sex is not provided, and the patient is female, multiply by 0.742. Results for patients <18 years of age have not been validated by the MDRD study and should be interpreted with caution. eGFR Result Interpretation:eGFR > or=60 is in the Normal RangeeGFR < 60 may mean kidney diseaseeGFR < 15 may mean kidney failure Ranges recommended by the National Kidney Foundation, http://nkdep.nih.gov eGFR Non-AA (test code=eGFR Non-AA) 42.37 mL/min/1.73 m2 eGFR (estimated Glomerular Filtration Rate) is an estimated value, calculated from the patient's serum creatinine using the MDRD equation. It is NOT the patient's actual GFR. The eGFR provides a more clinically useful measure of kidney disease than serum creatinine alone.This calculation takes sex and race into account, if the information is provided. If the race is not provided, and the patient is -[place], multiply by 1.212. If sex is not provided, and the patient is female, multiply by 0.742. Results for patients <18 years of age have not been validated by the MDRD study and should be interpreted with caution. eGFR Result Interpretation:eGFR > or=60 is in the Normal RangeeGFR < 60 may mean kidney diseaseeGFR < 15 may mean kidney failure Ranges recommended by the National Kidney Foundation, http://nkdep.nih.gov Pro B Natriuretic [id number] 14:10:54* Test Item Value Reference Range Comments NT-proBNP (test code=NT-proBNP) 94 pg/mL 0-124 CT Brain/Head w/o [id number] 13:38:06Patient: VANESSA DUGGAN Date/Time06/01/2019 12:55 CDTReason for ExamHead injuryReportCT head without contrast and CT cervical, thoracic, and lumbar spine without contrast 06/01/2019 1:30 PMCLINICAL HISTORY: Headache, back painTECHNIQUE: Axial noncontrast CT images through the head and cervical, thoracic, and lumbar spine were obtained. This examination was performed according to our departmental dose optimization program, which includes automated exposure control, adjustment of the mA and/or kV according to patient size, and/or use of iterative reconstruction technique.COMPARISON: None availableLOCATION: [id number]:There is no hemorrhage, extra-axial collection, mass, hydrocephalus, or midline shift. There is mild microvascular ischemia in the supratentorial white matter. There is generalized parenchymal volume loss. The visualized paranasal sinuses and mastoid air cells are well aerated. The skull is intact.There is no acute fracture or malalignment in the cervical, th oracic, or lumbar spine. There are shallow chronic wedge deformities in the T12, L1, and L2 vertebral bodies. There is transitional lumbosacral anatomy, with a well formed S1-S2 intervertebral disc. There are no osteolytic or osteoblastic l esions. Spinal canal diameter is within normal limits. There are mild multilevel degenerative changes, without high-grade central canal stenosis.There is substa ntial distention of the urinary bladder, with mild dilation of the right greater than left renal collecting systems. There is a 5 mm solid nodule in the subpleu ral right upper lobe.IMPRESSION:No intracranial hemorrhage or mass effect.No acu te fracture or malalignment in the cervical, thoracic, or lumbar spine.Distended urinary bladder.Right upper lobe pulmonary nodule, for which follow-up chest CT in 12 months is recommended.If concern for acute pathology persists, further ev aluation with MRI is recommended. Final Dictated by: MD Hakan, Rosalio gardenr JDictated DT/TM: 06/01/2019 1:30 pmSigned by: MD Mcclendon Timothy JSigned (Electronic Signature): 06/01/2019 1:38 pmCT Spine Cervical w/o Contrast 2019-06-01 13:38:06Patient: VANESSA DUGGAN Date/Time06/01/2019 12:55 CDTReason for ExamBack painReportCT head without contrast and CT cervical, thoracic, and lumbar spine without contrast 06/01/2019 1:30 PMCLINICAL HISTORY: Headache, back painTECHNIQUE: Axial noncontrast CT images through the head and cervical, thoracic, and lumbar spine were obtained. This examination was performed according to our departmental dose optimization program, which includes automated exposure control, adjustment of the mA and/or kV according to patient size, and/or use of iterative reconstruction technique.COMPARISON: None availableLOCATION: [id number]:There is no hemorrhage, extra-axial collection, mass, hydrocephalus, or midline shift. There is mild microvascular ischemia in the supratentorial white matter. There is generalized parenchymal volume loss. The visualized paranasal sinuses and mastoid air cells are well aerated. The skull is intact.There is no acute fracture or malalignment in the cervical, thoracic, or lumbar spine. There are shallow chronic wedge deformities in the T12, L1, and L2 vertebral bodies. There is transitional lumbosacral anatomy, with a well formed S1-S2 intervertebral disc. There are no osteolytic or osteoblastic lesions. Spinal canal diameter is within normal limits. There are mild multilevel d egenerative changes, without high-grade central canal stenosis.There is substant ial distention of the urinary bladder, with mild dilation of the right greater t mulligan left renal collecting systems. There is a 5 mm solid nodule in the subpleura l right upper lobe.IMPRESSION:No intracranial hemorrhage or mass effect.No acute fracture or malalignment in the cervical, thoracic, or lumbar spine.Distended u rinary bladder.Right upper lobe pulmonary nodule, for which follow-up chest CT i n 12 months is recommended.If concern for acute pathology persists, further eval uation with MRI is recommended. Final Dictated by: MD Mcclendon Timo thy JDictated DT/TM: 06/01/2019 1:30 pmSigned by: MD Mcclendon Timothy JSigned ( Electronic Signature): 06/01/2019 1:38 pmCT Spine Thoracic w/o Contrast 2019-06-01 13:38:06Patient: VANESSA DUGGAN Date/Time06/01/2019 12:55 CDTReason for ExamBack painReportCT head without contrast and CT cervical, thoracic, and lumbar spine without contrast 06/01/2019 1:30 PMCLINICAL HISTORY: Headache, back painTECHNIQUE: Axial noncontrast CT images through the head and cervical, thoracic, and lumbar spine were obtained. This examination was performed according to our departmental dose optimization program, which includes automated exposure control, adjustment of the mA and/or kV according to patient size, and/or use of iterative reconstruction technique.COMPARISON: None availableLOCATION: [id number]:There is no hemorrhage, extra-axial collection, mass, hydrocephalus, or midline shift. There is mild microvascular ischemia in the supratentorial white matter. There is generalized parenchymal volume loss. The visualized paranasal sinuses and mastoid air cells are well aerated. The skull is intact.There is no acute fracture or malalignment in the cervical, thoracic, or lumbar spine. There are shallow chronic wedge deformities in the T12, L1, and L2 vertebral bodies. There is transitional lumbosacral anatomy, with a well formed S1-S2 intervertebral disc. There are no osteolytic or osteoblastic lesions. Spinal canal diameter is within normal limits. There are mild multilevel d egenerative changes, without high-grade central canal stenosis.There is substant ial distention of the urinary bladder, with mild dilation of the right greater t mulligan left renal collecting systems. There is a 5 mm solid nodule in the subpleura l right upper lobe.IMPRESSION:No intracranial hemorrhage or mass effect.No acute fracture or malalignment in the cervical, thoracic, or lumbar spine.Distended u rinary bladder.Right upper lobe pulmonary nodule, for which follow-up chest CT i n 12 months is recommended.If concern for acute pathology persists, further eval uation with MRI is recommended. Final Dictated by: MD Mcclendon Timo thy JDictated DT/TM: 06/01/2019 1:30 pmSigned by: MD Mcclendon Timothy JSigned ( Electronic Signature): 06/01/2019 1:38 pmCT Spine Lumbar w/o [id number] 13:38:06Patient: VANESSA DUGGAN Date/Time06/01/2019 12:55 CDTReason for ExamBack painReportCT head without contrast and CT cervical, thoracic, and lumbar spine without contrast 06/01/2019 1:30 PMCLINICAL HISTORY: Headache, back painTECHNIQUE: Axial noncontrast CT images through the head and cervical, thoracic, and lumbar spine were obtained. This examination was performed according to our departmental dose optimization program, which includes automated exposure control, adjustment of the mA and/or kV according to patient size, and/or use of iterative reconstruction technique.COMPARISON: None availableLOCATION: [id number]:There is no hemorrhage, extra-axial collection, mass, hydrocephalus, or midline shift. There is mild microvascular ischemia in the supratentorial white matter. There is generalized parenchymal volume loss. The visualized paranasal sinuses and mastoid air cells are well aerated. The skull is intact.There is no acute fracture or malalignment in the cervical, thoracic, or lumbar spine. There are shallow chronic wedge deformities in the T12, L1, and L2 vertebral bodies. There is transitional lumbosacral anatomy, with a well formed S1-S2 intervertebral disc. There are no osteolytic or osteoblastic lesions. Spinal canal diameter is within normal limits. There are mild multilevel degenerative changes, without high-grade central canal stenosis.There is substantial distention of the urinary bladder, with mild dilation of the right greater than left renal collecting systems. There is a 5 mm solid nodule in the subpleural right upper lobe.IMPRESSION:No intracranial hemorrhage or mass effect.No acute fracture or malalignment in the cervical, thoracic, or lumbar spine.Distended urinary bladder.Right upper lobe pulmonary nodule, for which follow-up chest CT in 12 months is recommended.If concern for acute pathology persists, further eval uation with MRI is recommended. Final Dictated by: MD Mcclendon Timo thy JDictated DT/TM: 06/01/2019 1:30 pmSigned by: MD Mcclendon Timothy JSigned ( Electronic Signature): 06/01/2019 1:38 pmManual [id number] 07:04:16* Test Item Value Reference Range Comments Segs Man (test code=Segs Man) 31.0 % 36.0-70.0 Band Man (test code=Band Man) 0.0 % 0.0-6.0 Lymph Man (test code=Lymph Man) 54.0 % 12.0-44.0 Monocyte Man (test code=Monocyte Man) 8.0 % 0.0-11.0 Eos Man (test code=Eos Man) 7.0 % 0.0-7.0 Basophil Man (test code=Basophil Man) 0.0 0.0-2.0 Neut Man Abs (test code=Neut Man Abs) 1.4 x10 1.6-7.4 Lymph Man Abs (test code=Lymph Man Abs) 2.4 x10 0.5-4.6 Hendry Man Abs (test code=Hendry Man Abs) 0.4 x10 0.0-1.2 Eos Man Abs (test code=Eos Man Abs) 0.31 x10 0.00-0.74 Baso Man Abs (test code=Baso Man Abs) 0.00 x10 0.00-0.21 RBC Morph (test code=RBC Morph) As Indicated Normal Hypochromia (test code=Hypochromia) 1+ None Seen Elliptocyte (test code=Elliptocyte) 1+ None Seen Plt Estimation (test code=Plt Estimation) Normal Normal Lipase [id number] 06:01:26* Test Item Value Reference Range Comments Lipase Level (test code=Lipase Level) 14 U/L 13-60 Comprehensive Metabolic [id number] 06:01:25* Test Item Value Reference Range Comments Sodium Level (test code=Sodium Level) 146.0 mmol/L 135.0-145.0 Potassium Level (test code=Potassium Level) 3.9 mmol/L 3.5-5.1 Chloride Level (test code=Chloride Level) 110 mmol/L 98-105 CO2 (test code=CO2) 27 mmol/L 22-29 Anion Gap (test code=Anion Gap) 9 mmol/L 7-16 BUN (test code=BUN) 10.50 mg/dL 6.00-20.00 Creatinine Level (test code=Creatinine Level) 1.30 mg/dL 0.50-0.90 BUN/Creat Ratio (test code=BUN/Creat Ratio) 8 Glucose Level (test code=Glucose Level) 96 mg/dL 70-115 Calcium Level (test code=Calcium Level) 8.3 mg/dL 8.3-10.5 Alk Phos (test code=Alk Phos) 62 U/L 35-104 Bilirubin Total (test code=Bilirubin Total) 0.3 mg/dL 0.1-0.9 Albumin Level (test code=Albumin Level) 3.3 g/dL 3.5-5.2 Protein Total (test code=Protein Total) 6.2 g/dL 6.4-8.3 ALT (test code=ALT) 19 U/L 1-33 AST (test code=AST) 28 U/L 1-32 Globulin (test code=Globulin) 2.9 g/dL 2.9-3.1 A/G Ratio (test code=A/G Ratio) 1.1 ratio Comprehensive Metabolic [id number] 06:01:25* Test Item Value Reference Range Comments Sodium Level (test code=Sodium Level) 146.0 mmol/L 135.0-145.0 Potassium Level (test code=Potassium Level) 3.9 mmol/L 3.5-5.1 Chloride Level (test code=Chloride Level) 110 mmol/L 98-105 CO2 (test code=CO2) 27 mmol/L 22-29 Anion Gap (test code=Anion Gap) 9 mmol/L 7-16 BUN (test code=BUN) 10.50 mg/dL 6.00-20.00 Creatinine Level (test code=Creatinine Level) 1.30 mg/dL 0.50-0.90 BUN/Creat Ratio (test code=BUN/Creat Ratio) 8 Glucose Level (test code=Glucose Level) 96 mg/dL 70-115 Calcium Level (test code=Calcium Level) 8.3 mg/dL 8.3-10.5 Alk Phos (test code=Alk Phos) 62 U/L 35-104 Bilirubin Total (test code=Bilirubin Total) 0.3 mg/dL 0.1-0.9 Albumin Level (test code=Albumin Level) 3.3 g/dL 3.5-5.2 Protein Total (test code=Protein Total) 6.2 g/dL 6.4-8.3 ALT (test code=ALT) 19 U/L 1-33 AST (test code=AST) 28 U/L 1-32 Globulin (test code=Globulin) 2.9 g/dL 2.9-3.1 A/G Ratio (test code=A/G Ratio) 1.1 ratio eGFR AA (test code=eGFR AA) 51 mL/min/1.73 m2 eGFR (estimated Glomerular Filtration Rate) is an estimated value, calculated from the patient's serum creatinine using the MDRD equation. It is NOT the patient's actual GFR. The eGFR provides a more clinically useful measure of kidney disease than serum creatinine alone.This calculation takes sex and race into account, if the information is provided. If the race is not provided, and the patient is -[place], multiply by 1.212. If sex is not provided, and the patient is female, multiply by 0.742. Results for patients <18 years of age have not been validated by the MDRD study and should be interpreted with caution. eGFR Result Interpretation:eGFR > or=60 is in the Normal RangeeGFR < 60 may mean kidney diseaseeGFR < 15 may mean kidney failure Ranges recommended by the National Kidney Foundation, http://nkdep.nih.gov Comprehensive Metabolic [id number] 06:01:25* Test Item Value Reference Range Comments Sodium Level (test code=Sodium Level) 146.0 mmol/L 135.0-145.0 Potassium Level (test code=Potassium Level) 3.9 mmol/L 3.5-5.1 Chloride Level (test code=Chloride Level) 110 mmol/L 98-105 CO2 (test code=CO2) 27 mmol/L 22-29 Anion Gap (test code=Anion Gap) 9 mmol/L 7-16 BUN (test code=BUN) 10.50 mg/dL 6.00-20.00 Creatinine Level (test code=Creatinine Level) 1.30 mg/dL 0.50-0.90 BUN/Creat Ratio (test code=BUN/Creat Ratio) 8 Glucose Level (test code=Glucose Level) 96 mg/dL 70-115 Calcium Level (test code=Calcium Level) 8.3 mg/dL 8.3-10.5 Alk Phos (test code=Alk Phos) 62 U/L 35-104 Bilirubin Total (test code=Bilirubin Total) 0.3 mg/dL 0.1-0.9 Albumin Level (test code=Albumin Level) 3.3 g/dL 3.5-5.2 Protein Total (test code=Protein Total) 6.2 g/dL 6.4-8.3 ALT (test code=ALT) 19 U/L 1-33 AST (test code=AST) 28 U/L 1-32 Globulin (test code=Globulin) 2.9 g/dL 2.9-3.1 A/G Ratio (test code=A/G Ratio) 1.1 ratio eGFR AA (test code=eGFR AA) 51 mL/min/1.73 m2 eGFR (estimated Glomerular Filtration Rate) is an estimated value, calculated from the patient's serum creatinine using the MDRD equation. It is NOT the patient's actual GFR. The eGFR provides a more clinically useful measure of kidney disease than serum creatinine alone.This calculation takes sex and race into account, if the information is provided. If the race is not provided, and the patient is -[place], multiply by 1.212. If sex is not provided, and the patient is female, multiply by 0.742. Results for patients <18 years of age have not been validated by the MDRD study and should be interpreted with caution. eGFR Result Interpretation:eGFR > or=60 is in the Normal RangeeGFR < 60 may mean kidney diseaseeGFR < 15 may mean kidney failure Ranges recommended by the National Kidney Foundation, http://nkdep.nih.gov eGFR Non-AA (test code=eGFR Non-AA) 42.37 mL/min/1.73 m2 eGFR (estimated Glomerular Filtration Rate) is an estimated value, calculated from the patient's serum creatinine using the MDRD equation. It is NOT the patient's actual GFR. The eGFR provides a more clinically useful measure of kidney disease than serum creatinine alone.This calculation takes sex and race into account, if the information is provided. If the race is not provided, and the patient is -[place], multiply by 1.212. If sex is not provided, and the patient is female, multiply by 0.742. Results for patients <18 years of age have not been validated by the MDRD study and should be interpreted with caution. eGFR Result Interpretation:eGFR > or=60 is in the Normal RangeeGFR < 60 may mean kidney diseaseeGFR < 15 may mean kidney failure Ranges recommended by the National Kidney Foundation, http://nkdep.nih.gov Complete Blood Count with [id number] 05:48:17* Test Item Value Reference Range Comments WBC (test code=WBC) 4.4 x10 4.4-10.5 RBC (test code=RBC) 2.96 x10 3.75-5.20 Hgb (test code=Hgb) 8.7 g/dL 12.2-14.8 Hct (test code=Hct) 28.2 % 36.5-44.4 MCV (test code=MCV) 95.30 fL 80.00-100.00 MCHC (test code=MCHC) 30.90 g/dL 32.00-37.50 RDW CV (test code=RDW CV) 13.2 % 11.5-14.5 MCH (test code=MCH) 29.4 pg 27.0-32.5 Platelets (test code=Platelets) 173.0 x10 140.0-440.0 MPV (test code=MPV) 10.4 fL Slide Review (test code=Slide Review) Manual Auto Result created by [email or web address] [email or web address] nRBC (test code=nRBC) 0 NRBC Abs (test code=NRBC Abs) 0.00 x10 Pos Diff XN (test code=Pos Diff XN) A IPF (test code=IPF) 0 % IG [id number] 05:48:17* Test Item Value Reference Range Comments IG (test code=IG) 0.2 % 0.0-5.0 IG Abs (test code=IG Abs) 0 x10 HIV 1 RNA PCR [id number] 07:30:00* Test Item Value Reference Range Comments HIV 1 RNA PCR (LOG 10) (test code=WYUTNN27) 5.803 () INFCE Result Units: lko98qcul/mLPerformed At: [facility] [address] [id number] Sanjai MD Ph:[phone] HIV-1 RNA BY PCR, QUANT (test code=HIVRNAPCRT) [id number] COPIE/ML () INFCE Result Units: copies/mLThe reportable range for this assay is 20 to 10,000,000copies HIV-1 RNA/mL. AB HIV 1 07:30:00* Test Item Value Reference Range Comments AB HIV 1 2 (test code=KNF35OC) REACTIVE NEGATIVE Critical Value reported toFirst Name:[id number] Last Name:RESULTS READ BACK AND VERIFIEDby [email or web address], on 05/12/19, @ 0786. A COPY OF THIS RESULT MUST BE SENT TO INFECTION CONTROL. THIS IS A SCREENING TEST PERFORMED BY [facility]. IFIT IS REACTIVE, AND IF CLINICALLY INDICATED, CONFIRMATION BYAN ADDITIONAL MORE SPECIFIC TEST IS SUGGESTED. HIV-1 [id number] 07:30:00* Test Item Value Reference Range Comments HIV-1 GENOTYPE (test code=DGZ2YCJV) GENERIC NAME BRAND NAME Abacavir Ziagen Didanosine Videx Emtricitabine Emtriva Lamivudine Epivir Stavudine Zerit Tenofovir Viread Zidovudine Retrovir Doravirine Pifeltro Efavirenz Sustiva Etravirine Intelence Nevirapine Viramune Rilpivirine Edurant Atazanavir Reyataz Darunavir Prezista Fosamprenavir LexivaIndinavir Crixivan Lopinavir Kaletra Nelfinavir Viracept Ritonavir Norvir Saquinavir Invirase Tipranavir Aptivus SENSITIVE TO ALL DRUGS LISTED CSF CELL [id number] 18:01:00* Test Item Value Reference Range Comments CSF COLOR (test code=COLCSF) Colorless COLORLESS CSF APPEARANCE (test code=APPCSF) Clear CLEAR CSF TUBE # (test code=TUBECSF) #4 CSF VOLUME (test code=VOLCSF) 10 ML CSF WBC (test code=WBCCSF) 4 /mm3 0-9 CSF RBC (test code=RBCCSF) 0 /mm3 0-0 PATHOLOGIST INTERPRETATION (test code=PATHPHLEB) . COMMENTS: AGREE WITH DIFFERENTIAL.PATHOLOGIST: SONJA ANG MD Spec Comments: USE TUBE 3CSF GLUCOSE 2019-05-18 18:01:00* Test Item Value Reference Range Comments CSF GLUCOSE (test code=GLUCSF) 44 mg/dL 40-70 TUBE USED FOR ANALYSIS OF CSF SPECIMEN IS: #2 Spec Comments: USE TUBE 3CSF TOT PROTEIN 2019-05-18 18:01:00* Test Item Value Reference Range Comments CSF TOT PROTEIN (test code=PROTCSF) 31 mg/dL 12.0-60.0 TUBE USED FOR ANALYSIS OF CSF SPECIMEN IS: #2 Spec Comments: USE TUBE 3CSF VDRL QUAL 2019-05-18 18:01:00* Test Item Value Reference Range Comments CSF VDRL QUAL (test code=VDRLCSFQL) Non Reactive Non Ann Marie:<1:1 Performed At: [facility] [id number] Sanjai MD Ph:[phone] Spec Comments: USE TUBE 3HSV 1 2 BY PCR 2019-05-18 15:07:00* Test Item Value Reference Range Comments HSV 1 BY PCR (test code=NYR4KMJ) NOT DETECTED HSV 2 BY PCR (test code=XEI0IUG) NOT DETECTED Spec Comments: CSFSource CSFCSF CELL [id number] 14:36:00* Test Item Value Reference Range Comments CSF COLOR (test code=COLCSF) Colorless COLORLESS CSF APPEARANCE (test code=APPCSF) Clear CLEAR CSF TUBE # (test code=TUBECSF) #4 CSF VOLUME (test code=VOLCSF) 10 ML CSF WBC (test code=WBCCSF) 4 /mm3 0-9 CSF RBC (test code=RBCCSF) 0 /mm3 0-0 PATHOLOGIST INTERPRETATION (test code=PATHPHLEB) . Spec Comments: USE TUBE 3CSF GLUCOSE 2019-05-18 14:36:00* Test Item Value Reference Range Comments CSF GLUCOSE (test code=GLUCSF) 44 mg/dL 40-70 TUBE USED FOR ANALYSIS OF CSF SPECIMEN IS: #2 Spec Comments: USE TUBE 3CSF TOT PROTEIN 2019-05-18 14:36:00* Test Item Value Reference Range Comments CSF TOT PROTEIN (test code=PROTCSF) 31 mg/dL 12.0-60.0 TUBE USED FOR ANALYSIS OF CSF SPECIMEN IS: #2 Spec Comments: USE TUBE 3CSF VDRL QUAL 2019-05-18 14:36:00* Test Item Value Reference Range Comments CSF VDRL QUAL (test code=VDRLCSFQL) Non Reactive Non Ann Marie:<1:1 Performed At: [facility] [id number] Sanjai MD Ph:[phone] Spec Comments: USE TUBE 3BASIC METABOLIC [id number] 04:02:00* Test Item Value Reference Range Comments SODIUM (test code=NA) 140 mmol/L 137-145 POTASSIUM (test code=K) 4.7 mmol/L 3.4-5.0 CHLORIDE (test code=CL) 103 mmol/L 98-107 CARBON DIOXIDE (test code=CO2) 31 mmol/L 22-30 GLUCOSE (test code=GLU) 71 mg/dL 74-106 BLOOD UREA NITROGEN (test code=BUN) 9 mg/dL 7-17 GLOMERULAR FILTRATION RATE (test code=GFR) 83 >60 The estimated glomerular filtration rate is computed usingpatient race, age (>18), sex, and serum creatinine. If anyof the needed data elements are missing the Laboratory cannot compute an estimation of the glomerular filtration rate. CREATININE (test code=CREAT) 0.9 mg/dL 0.5-1.0 CALCIUM (test code=CA) 8.8 mg/dL 8.4-10.2 [id number] 00:34:00* Test Item Value Reference Range Comments POTASSIUM (test code=K) 4.5 mmol/L 3.4-5.0 AG [id number] 13:57:00* Test Item Value Reference Range Comments AG CRYPTOCOCCAL (test code=CRYPTO) Negative Negative Performed At: [address] [id number] Sanjai MD Ph:[phone] AG [id number] 13:54:00* Test Item Value Reference Range Comments AG CRYPTOCOCCAL (test code=CRYPTO) Negative Negative Performed At: [facility] [id number] Sanjai MD Ph:[phone] BASIC METABOLIC [id number] 05:24:00 * Test Item Value Reference Range Comments SODIUM (test code=NA) 143 mmol/L 137-145 POTASSIUM (test code=K) 3.1 mmol/L 3.4-5.0 CHLORIDE (test code=CL) 113 mmol/L 98-107 CARBON DIOXIDE (test code=CO2) 23 mmol/L 22-30 GLUCOSE (test code=GLU) 79 mg/dL 74-106 BLOOD UREA NITROGEN (test code=BUN) 8 mg/dL 7-17 GLOMERULAR FILTRATION RATE (test code=GFR) 112 >60 The estimated glomerular filtration rate is computed usingpatient race, age (>18), sex, and serum creatinine. If anyof the needed data elements are missing the Laboratory cannot compute an estimation of the glomerular filtration rate. CREATININE (test code=CREAT) 0.7 mg/dL 0.5-1.0 CALCIUM (test code=CA) 7.0 mg/dL 8.4-10.2 - PUNCTURE LUMBAR [id number] 17:37:00 FAX: Zion Pollack MD [phone] [place]: [address]: ADM Name: VANESSA AMAYA [facility] : [birth year] Age/S: 58/F [address] Unit #: [id number] Loc: [address] [place] [address] Phys: Zion Lowe MD Acct: [id number] Dis Date: Status: ADM IN PHONE #: [phone] Exam Date: 05/15/2019 1330 FAX #: [phone] Reason: FEVR SUAZO EXAMS: CPT CODE: [id number] [place] [id number] EXAM: Lumbar puncture, fluoroscopic guided DICTATION LOCATION: C3 CLINICAL INDICATI ON: Altered mental status PROCEDURE PERFORMED BY: Orlin Raymond COMPARISON: None TECHNIQUE: The procedure was di scussed with patient and informed consent obtained. Patient transferred to fluoroscopy suite and placed on the fluoroscopy table in prone position. Timeout was performed for patient's safety. The lower back was prepped and draped in sterile fashion. 1% lidocaine was admini stered to the skin and subcutaneous tissues overlying the expected punctur e site. A 22-gauge x 3.5 inches spinal needle was then advanced in to the thecal sac at the L3-L4 level. Opening pressure obtained at 15 centimeters H2O. Approximately 10 cc of clear CSF was obtained for labo ratory evaluation. Closing pressure was measured at 12 cm H2O. The needl e was removed. Puncture site was dressed with a sterile bandage. The patie nt tolerated the procedure well. Post procedure instructions were provide d. Patient was taken back to room by transport. Fluoroscopi c time: 2 minutes 42 seconds Total number images obtained: 6 Estimated radiation dose: 115.076 mGy IMPRESSION: 1. Successful fluoroscopic guided lumbar puncture. at 6697 Reported and signed by: Sulaiman Terrazas M.D. PAGE 1 Signed Report (CONTINUED) FAX: Zion Pollack MD [phone] [place]: St: ADM Name: VANESSA DUGGAN [facility] : 1960 Age/S: 58/F [address] Unit #: [id number] Loc: [address] [place] [address] Phys: Zion Lowe MD Acct: [id number] Dis Date: Status: ADM IN PHONE #: [phone] Exam Date: 05/15/2019 1330 FAX #: [phone] Reason: FEVR SUAZO EXAMS: CPT CODE: [id number] [place] [id number] <Continued> CC: Zion Lowe MD Technologist: Fatou Forde Trnscrd Date/Time/By: 05/15/2019 (8971) : By: GeorgesHPMercy PAGE 2 Signed Report FAX: Zion Pollack MD [phone] [place]: St: ADM Name: RIYA DUGGAN NTHIShay [facility] : 1960 Age/ S: 58/F [address] Unit #: [id number] Loc: [place] [address] Phys: Zion Lowe MD Acct: [id number] Dis Date: Status: ADM IN PHONE #: [phone] Exam Date: 05/15/2019 1330 FAX #: [phone] Reason: FEVR SUAZO EXAMS: CPT CODE: [id number] [place] [id number] <Continued> Orig Print D/T: S: 05/15/2019 (9836) PAGE 3 Signed Report CSF CELL CT/DIFF 2019-05-15 15:23:00* Test Item Value Reference Range Comments CSF COLOR (test code=COLCSF) Colorless COLORLESS CSF APPEARANCE (test code=APPCSF) Clear CLEAR CSF TUBE # (test code=TUBECSF) #4 CSF VOLUME (test code=VOLCSF) 10 ML CSF WBC (test code=WBCCSF) 4 /mm3 0-9 CSF RBC (test code=RBCCSF) 0 /mm3 0-0 PATHOLOGIST INTERPRETATION (test code=PATHPHLEB) . Spec Comments: USE TUBE 3CSF GLUCOSE 2019-05-15 15:23:00* Test Item Value Reference Range Comments CSF GLUCOSE (test code=GLUCSF) 44 mg/dL 40-70 TUBE USED FOR ANALYSIS OF CSF SPECIMEN IS: #2 Spec Comments: USE TUBE 3CSF TOT PROTEIN 2019-05-15 15:23:00* Test Item Value Reference Range Comments CSF TOT PROTEIN (test code=PROTCSF) 31 mg/dL 12.0-60.0 TUBE USED FOR ANALYSIS OF CSF SPECIMEN IS: #2 Spec Comments: USE TUBE 3CSF VDRL QUAL 2019-05-15 15:23:00* Test Item Value Reference Range Comments CSF VDRL QUAL (test code=VDRLCSFQL) NONREACTIVE Spec Comments: USE TUBE 3CSF CELL CT/DIFF 2019-05-15 14:16:00* Test Item Value Reference Range Comments CSF COLOR (test code=COLCSF) COLORLESS CSF APPEARANCE (test code=APPCSF) CLEAR CSF TUBE # (test code=TUBECSF) CSF VOLUME (test code=VOLCSF) ML CSF WBC (test code=WBCCSF) /mm3 0-9 CSF RBC (test code=RBCCSF) /mm3 0-0 CSF POLYNUCLEAR (test code=POLYCSF) % Spec Comments: USE TUBE 3CSF GLUCOSE 2019-05-15 14:16:00* Test Item Value Reference Range Comments CSF GLUCOSE (test code=GLUCSF) 44 mg/dL 40-70 TUBE USED FOR ANALYSIS OF CSF SPECIMEN IS: #2 Spec Comments: USE TUBE 3CSF TOT PROTEIN 2019-05-15 14:16:00* Test Item Value Reference Range Comments CSF TOT PROTEIN (test code=PROTCSF) 31 mg/dL 12.0-60.0 TUBE USED FOR ANALYSIS OF CSF SPECIMEN IS: #2 Spec Comments: USE TUBE 3CSF VDRL QUAL 2019-05-15 14:16:00* Test Item Value Reference Range Comments CSF VDRL QUAL (test code=VDRLCSFQL) NONREACTIVE Spec Comments: USE TUBE 3BASIC METABOLIC [id number] 05:11:00* Test Item Value Reference Range Comments SODIUM (test code=NA) 140 mmol/L 137-145 POTASSIUM (test code=K) 3.5 mmol/L 3.4-5.0 CHLORIDE (test code=CL) 107 mmol/L 98-107 CARBON DIOXIDE (test code=CO2) 26 mmol/L 22-30 GLUCOSE (test code=GLU) 89 mg/dL 74-106 BLOOD UREA NITROGEN (test code=BUN) 9 mg/dL 7-17 GLOMERULAR FILTRATION RATE (test code=GFR) 96 >60 The estimated glomerular filtration rate is computed usingpatient race, age (>18), sex, and serum creatinine. If anyof the needed data elements are missing the Laboratory cannot compute an estimation of the glomerular filtration rate. CREATININE (test code=CREAT) 0.8 mg/dL 0.5-1.0 CALCIUM (test code=CA) 8.3 mg/dL 8.4-10.2 HIV 1 RNA PCR [id number] 21:17:00* Test Item Value Reference Range Comments HIV 1 RNA PCR (LOG 10) (test code=MQSKRF48) 5.803 () INFCE Result Units: ayc90vafe/mLPerformed At: [facility] [address] [place], [place] [id number] Sanjai MD Ph:[phone] HIV-1 RNA BY PCR, QUANT (test code=HIVRNAPCRT) [id number] COPIE/ML () INFCE Result Units: copies/mLThe reportable range for this assay is 20 to 10,000,000copies HIV-1 RNA/mL. AB HIV 1 21:17:00* Test Item Value Reference Range Comments AB HIV 1 2 (test code=ZOM57TN) REACTIVE NEGATIVE Critical Value reported toFirst Name:[id number] Last Name:RESULTS READ BACK AND VERIFIEDby , on 05/12/19, @ 8903. A COPY OF THIS RESULT MUST BE SENT TO INFECTION CONTROL. THIS IS A SCREENING TEST PERFORMED BY [facility]. IFIT IS REACTIVE, AND IF CLINICALLY INDICATED, CONFIRMATION BYAN ADDITIONAL MORE SPECIFIC TEST IS SUGGESTED. HIV-1 [id number] 21:17:00* Test Item Value Reference Range Comments HIV-1 GENOTYPE (test code=BCU7AQLN) - MRI BRAIN W/O [id number] 17:00:00 FAX: Delano Chan [place]: St: ADM FAX: Zion Pollack MD [phone] Name: VANESSA DUGGAN [facility] : 1960 Age/S: 58/F [address] Unit #: [id number] Loc: [address] [place] [address] Phys: Delano Chan MD Acct: [id number] Dis Date: Status: ADM IN PHONE #: [phone] Exam Date: 05/14/2019 1649 FAX #: [phone] Reason: R/O MENINGITITS EXAMS: CPT CODE: [id number] MRI BRAIN W/O CONTRAST 54634 EXAM: MRI BRAIN WITHOUT CONTRAST INDICATION: Altered mental status, dehydration COMPARISON: CT head dated May 11, 2019 TECHNIQUE: Multiplanar, multisequence MRI of the brain was obtained without administration of intravenous contrast. IV contrast: None FINDINGS: No restricted diffusion is identified to suggest acute ischemia. There are areas of hyperintense T2 changes within the supratentorial white matter which may be secondary to encephalitis. There is mild prominence of the ventricles which is concerning for possible hydrocephalus. No midline shift is identified. The basal cisterns are patent. The posterior fossa and 4th ventricle are normal. No in tracranial hemorrhage. Pituitary gland is normal in size. Intracr anial flow voids are normal. The paranasal sinuses and mastoid air cells are clear. No calvarial lesions are identified. The orbits and gl obes are unremarkable. IMPRESSION: Abnormal signal withi n the supratentorial white matter which is nonspecific and may be second fabby to encephalitis. Mildly prominent ventricles consistent with mild hy drocephalus. Further evaluation with lumbar puncture should be conside red. LOCATION: A 1 at 1700 Reported and signed by: Patty Muñoz MD CC: Delano Chan MD; Zion Lowe MD Technologist: Alex Yan Trnscrd Date/Time/By: 05/14/2019 (6873) : By: 16 PAGE 1 Signed Report FAX: Sr Rocio [facility] [place]: St: ADM FAX: Zion Pollack MD [phone] Name: VANESSA DUGGAN [facility] : 1960 Age/S: 58/F [address] Unit #: [id number] Loc: [address] [address] Phys: Delano Chan MD Acct: [id number] Dis Date: Status: ADM IN PHONE #: [phone] Exam Date: 05/14/2019 1649 FAX #: [phone] Reason: R/O MENINGITITS EXAMS: CPT CODE: [id number] MRI BRAIN W/O CONTRAST 01060 <Continued> Orig Print D/T: S: 05/14/2019 (8542) PAGE 2 Signed Report BEDSIDE [id number] 14:49:00* Test Item Value Reference Range Comments BEDSIDE CREATININE (test code=CREATBED) 1.3 mg/dL 0.52-1.04 BASIC METABOLIC [id number] 05:32:00* Test Item Value Reference Range Comments SODIUM (test code=NA) 141 mmol/L 137-145 POTASSIUM (test code=K) 3.4 mmol/L 3.4-5.0 CHLORIDE (test code=CL) 107 mmol/L 98-107 CARBON DIOXIDE (test code=CO2) 25 mmol/L 22-30 GLUCOSE (test code=GLU) 86 mg/dL 74-106 BLOOD UREA NITROGEN (test code=BUN) 6 mg/dL 7-17 GLOMERULAR FILTRATION RATE (test code=GFR) 96 >60 The estimated glomerular filtration rate is computed usingpatient race, age (>18), sex, and serum creatinine. If anyof the needed data elements are missing the Laboratory cannot compute an estimation of the glomerular filtration rate. CREATININE (test code=CREAT) 0.8 mg/dL 0.5-1.0 CALCIUM (test code=CA) 8.3 mg/dL 8.4-10.2 - DUP VEIN [id number] 16:45:00 FAX: Zion Pollack MD [phone] [place]: St: ADM Name: VANESSA AMAYA [facility] : [birth year] Age/S: 58/F [address] Unit #: [id number] Loc: [address] [place] [address] Phys: Zion Lowe MD Acct: [id number] Dis Date: Status: ADM IN PHONE #: [phone] Exam Date: 05/13/2019 1631 FAX #: [phone] Reason: BLE EDEMA EXAMS: CPT CODE: [id number] DUP VEIN BRANNON [address]1602 VENOUS DUPLEX BILATERAL LOWER EXTR EMITIES CPT code: 06333 INDICATION: BLE EDEMA, LOCATION: [facility] - C3 COMPARISON: None TECH NIQUE: Otto scale real-time B mode imaging with color flow and spe ctral Doppler was performed of the bilateral lower extremities. DISCUSSION: Right Lower extremity: The deep veins demonstrated no abnormal intraluminal signal. There is increased flow with distal augmentation maneuvers. No evidence of abnormal fluid collection can be seen. The deep veins of the thigh and calf were freely compressible. Left Lower extremity: The deep veins demonstrated no abnormal intraluminal signal. There is increased flow with distal augmentation maneuvers. No e vidence of abnormal fluid collection can be seen. The deep veins of the thigh and calf were freely compressible. IMPRESSION: 1. No evidence of DVT bilaterally. This report was generated by using voice-recognition software. PAGE 1 Signed Report (CONTINUED) FAX: Zion Pollack MD [phone] [place]: St: ADM Name: RIYA DUGGAN [facility] : 1960 Age/ S: 58/F [address] Unit #: [id number] Loc: [place] [address] Phys: Zion Lowe MD Acct: [id number] Dis Date: Status: ADM IN PHONE #: [phone] Exam Date: 05/13/2019 1631 FAX #: [phone] Reason: BLE EDEMA EXAMS: CPT CODE: [id number] DUP VEIN BRANNON 07248 <Continued> at 9102 Reported and signed by: Sulaiman Terrazas M.D. CC: Zion Lowe MD Technologist: FELICITAS Powell Trnscrd Date/Time/By: 05/13/2019 (0162) : By: Braden PAGE 2 Signed Report FAX: Zion Pollack MD [phone] [place]: St: ADM Name: VANESSA DUGGAN [facility] : 1960 Age/S: 58/F [address] Unit #: [id number] Loc: [place] [address] Phys: Zion Lowe MD Acct: [id number] Dis Date: Status: ADM IN PHONE #: [phone] Exam Date: 05/13/2019 1631 FAX #: [phone] Reason: BLE EDEMA EXAMS: CPT CODE: [id number] DUP VEIN [place] [address] <Continued> Orig Print D/T: S: 05/13/2019 (2920) PAGE 3 Signed Report COMPREHENSIVE METABOLIC [id number] 13:51:00* Test Item Value Reference Range Comments SODIUM (test code=NA) 139 mmol/L 137-145 POTASSIUM (test code=K) 3.7 mmol/L 3.4-5.0 CHLORIDE (test code=CL) 106 mmol/L 98-107 CARBON DIOXIDE (test code=CO2) 26 mmol/L 22-30 GLUCOSE (test code=GLU) 109 mg/dL 74-106 BLOOD UREA NITROGEN (test code=BUN) 11 mg/dL 7-17 GLOMERULAR FILTRATION RATE (test code=GFR) 83 >60 The estimated glomerular filtration rate is computed usingpatient race, age (>18), sex, and serum creatinine. If anyof the needed data elements are missing the Laboratory cannot compute an estimation of the glomerular filtration rate. CREATININE (test code=CREAT) 0.9 mg/dL 0.5-1.0 TOTAL PROTEIN (test code=PROT) 6.9 g/dL 6.3-8.2 ALBUMIN (test code=ALB) 3.2 g/dL 3.5-5.0 CALCIUM (test code=CA) 8.5 mg/dL 8.4-10.2 BILIRUBIN TOTAL (test code=BILT) 0.4 mg/dL 0.2-1.3 BILIRUBIN CONJUGATED (test code=BILCON) 0 mg/dL 0-0.3 ~~~~~~~~~~~~~~~~~~~~~~~~~~~~~~~~~~~~~~~~~~~~~~~~~~~~~~~~~~~~CONJUGATED BILIRUBIN IS THE REPLACEMENT ASSAY FOR DIRECTBILIRUBIN.~~~~~~~~~~~~~~~~~~~~~~~~~~~~~~~~~~~~~~~~~~~~~~~~~~~~~~~~~~~~ BILIRUBIN UNCONJUGATED (test code=BILUNC) 0 mg/dL 0-1.1 SGOT/AST (test code=AST) 68 U/L 15-46 SGPT/ALT (test code=ALT) 38 U/L 13-69 ALKALINE PHOSPHATASE (test code=ALKP) 66 U/L 38-126 [id number] 13:51:00* Test Item Value Reference Range Comments MAGNESIUM (test code=MAG) 1.9 mg/dL 1.6-2.3 TSH REFLEX TO [id number] 13:51:00* Test Item Value Reference Range Comments TSH REFLEX TO FT4 (test code=TSHREFLEX) 2.240 MIU/L 0.465-4.68 A positive bias may occur for patients taking BIOTINsupplements. CD 4 HELPER/INDUCER [id number] 13:51:00* Test Item Value Reference Range Comments CD 4 HELPER/INDUCER MARKER (test code=CD4) 30-61% Ordered ItemsHelper T-Lymph-CD4; NTI Frozen Serum TESTS RESULT FLAG UNITS REFERENCE INTERVAL LABHelper T-Lymph-CD4 Absolute CD 4 [place] 59 Low /uL 359 - 1519 % CD 4 Pos. Lymph. 4.5 Low % 30.8 - 58.5 01 [id number] 13:51:00* Test Item Value Reference Range Comments PREALBUMIN (test code=PREALB) 9.34 mg/dL 17.6-36.0 BASIC METABOLIC [id number] 03:55:00 * Test Item Value Reference Range Comments SODIUM (test code=NA) 139 mmol/L 137-145 POTASSIUM (test code=K) 4.3 mmol/L 3.4-5.0 CHLORIDE (test code=CL) 109 mmol/L 98-107 CARBON DIOXIDE (test code=CO2) 23 mmol/L 22-30 GLUCOSE (test code=GLU) 109 mg/dL 74-106 BLOOD UREA NITROGEN (test code=BUN) 9 mg/dL 7-17 GLOMERULAR FILTRATION RATE (test code=GFR) 96 >60 The estimated glomerular filtration rate is computed usingpatient race, age (>18), sex, and serum creatinine. If anyof the needed data elements are missing the Laboratory cannot compute an estimation of the glomerular filtration rate. CREATININE (test code=CREAT) 0.8 mg/dL 0.5-1.0 CALCIUM (test code=CA) 8.3 mg/dL 8.4-10.2 - XR CHEST 1 [id number] 21:13:00 FAX: J Carlos Quintana DO [phone] [place]: St: [facility] FAX: Zion Pollack MD [phone] Name: [place] : 1960 Age/S: 58/F [address] Unit #: [id number] Loc: [place] [address] Phys: J Carlos Decker DO Acct: [id number] Dis Date: Status: ADM IN PHONE #: [phone] Exam Date: 05/12/20192029 FAX #: [phone] Reason: feverssob EXAMS: CPT CODE: [id number] XR CHEST 1 V 16103 EXAM: Portable chest one view. Location code:J9 HISTORY: Shortness of breath COMPARISON: 05/11/2019 COMMENT: . The lungs and pleural spaces are clear. Lungs are normally expanded. The aorta, pulmonary vasculature and mediastinum are within normal limits. Cardiac silhouette is normal in size and contour. Visualized skeletal structures are unremarkable. IMPRESSION: No active disease in the chest. at 2113 Reported and signed by: Eyal Robison MD CC: J Carlos Decker DO; Zion Lowe MD Technologist: RT Josue (R) Trnscrd Date/Time/By: 05/12/2019 (2112) : By: Perfecto.RR16 PAGE 1 Signed Report FAX: J Carlos Quintana DO [phone] [place]: St: ADM FAX: Zion Pollack MD [phone] Name: VANESSA DUGGAN : 1960 Age/S: 58/F [address] Unit #: [id number] Loc: [place] [address] Phys: J Carlos Decker DO Acct: [id number] Dis Date: Status: ADM IN PHONE #: [phone] Exam Date: 05/12/20192029 FAX #: [phone] Reason: feverssob EXAMS: CPT CODE: [id number] XR CHEST 1 V 84824 <Continued> Orig Print D/T: S: 05/12/2019 (8549) PAGE 2 Signed Report PROCALCITONIN (PCT)2019-05-12 18:40:00* Test Item Value Reference Range Comments PROCALCITONIN (PCT) (test code=PROCAL) < 0.05 NG/ML Procalcitonin (PCT) Normal Value: <0.05 NG/ML <0.5 NG/ML - low risk of severe sepsis and/or septic shock>2.0 NG/ML - high risk of severe sepsis and/or septic shock PCT concentrations between 0.5 and 2.0 NG/ML should beinterpreted taking into account the patient's history.It is recommended to retest PCT within 6-24 hours if anyconcentrations between 0.5-2.0 NG/ML are obtained. URINALYSIS [id number] 18:28:00* Test Item Value Reference Range Comments UA COLOR (test code=COLU) Yellow Yellow UA APPEARANCE (test code=APPU) Clear Clear UA GLUCOSE DIPSTICK (test code=DGLUU) Negative Negative UA BILIRUBIN DIPSTICK (test code=BILU) Negative Negative UA KETONE DIPSTICK (test code=KETU) Negative mg/dL Negative UA SPECIFIC GRAVITY (test code=SGU) 1.010 <1.030 UA BLOOD DIPSTICK (test code=DEVORA) Negative Negative UA PH DIPSTICK (test code=JEAN-PIERRE) 5.0 5.0-8.0 UA PROTEIN DIPSTICK (test code=PROU) NEGATIVE mg/dL Negative UA UROBILINOGEN DIPSTICK (test code=URO) Negative mg/dL Negative UA NITRITE DIPSTICK (test code=NAILA) Negative Negative UA LEUKOCYTE ESTERASE DIPSTICK (test code=LEUU) TRACE Negative UA WBC (test code=WBCU) 4-5 /HPF <4-5 UA RBC (test code=RBCU) 0-3 /HPF <4-5 UA BACTERIA (test code=BACU) 2+ /HPF None-Rare UA SQUAMOUS CELLS (test code=SQU) 0-5 (RARE) /HPF 0-5 (RARE) UA MUCUS (test code=MUCU) Rare /LPF <Rare HIV 1 RNA PCR [id number] 05:13:00* Test Item Value Reference Range Comments HIV 1 RNA PCR (LOG 10) (test code=VOZBYY26) HIV-1 RNA BY PCR, QUANT (test code=HIVRNAPCRT) COPIE/ML HIV 1 RNA ULTRASENSITIVE [id number] 05:13:00* Test Item Value Reference Range Comments HIV 1 RNA ULTRASENSITIVE QUAL (test code=[id number]) HIV 1 2 ANTIBODY [id number] 05:13:00* Test Item Value Reference Range Comments HIV 1 RNA PCR COMMENT (test code=HIVCOM) AB HIV 1 (test code=HIV1AB) NONREACTIVE AB HIV 2 (test code=HIV2AB) AB HIV 1 05:13:00* Test Item Value Reference Range Comments AB HIV 1 2 (test code=WRS03ZF) REACTIVE NEGATIVE Critical Value reported toFirst Name:[id number] Last Name:RESULTS READ BACK AND VERIFIEDby CNaifLABNaifMG, on 05/12/19, @ 1550. A COPY OF THIS RESULT MUST BE SENT TO INFECTION CONTROL. THIS IS A SCREENING TEST PERFORMED BY [facility]. IFIT IS REACTIVE, AND IF CLINICALLY INDICATED, CONFIRMATION BYAN ADDITIONAL MORE SPECIFIC TEST IS SUGGESTED. HIV-1 [id number] 05:13:00* Test Item Value Reference Range Comments HIV-1 GENOTYPE (test code=BHX7KZNL) CBC W/MANUAL [id number] 04:20:00* Test Item Value Reference Range Comments WHITE BLOOD CELL (test code=WBC) 2.4 x10 3/uL 5.0-12.0 RED BLOOD CELL (test code=RBC) 3.45 x10 6/uL 4.20-5.40 HEMOGLOBIN (test code=HGB) 9.7 g/dL 12.0-16.0 HEMATOCRIT (test code=HCT) 32.8 % 36.0-46.0 MEAN CELL VOLUME (test code=MCV) 95 fL 81-99 MEAN CELL HGB (test code=MCH) 28.1 pg 27-31 MEAN CELL HGB CONCENTRATION (test code=MCHC) 29.6 g/dL 33-37 RED CELL DISTRIBUTION WIDTH (test code=RDW) 12.9 % 11.5-15.5 PLATELET COUNT (test code=PLT) 152 x10 3/uL 130-400 MEAN PLATELET VOLUME (test code=MPV) 10.3 fL 9.4-16.4 TOTAL CELLS COUNTED (test code=TCC) 100 #CELLS SEGMENTED NEUTROPHILS (test code=SEG) 80 % 43-65 BAND NEUTROPHIL (test code=BAND) 5 % 0-1 LYMPHOCYTE (test code=LYMPH) 5 % 20.5-45.5 ATYPICAL LYMPH (test code=ALYMPH) 8 % 0-1 MONOCYTE (test code=MON) 3 % 5.5-11.7 TEAR DROP CELLS (test code=TEAR) 1+ NONE SEEN OVALOCYTES (test code=OVAL) 1+ NONE SEEN PLATELET ESTIMATE (test code=PLTEST) ADEQUATE ADEQUATE PLATELET MORPHOLOGY (test code=PLTMORPH) LARGE PLATELETS SEEN NORMAL SED [id number] 04:16:00* Test Item Value Reference Range Comments SED RATE (test code=SEDW) 23 mm/hr 0-30 COMPREHENSIVE METABOLIC [id number] 04:03:00* Test Item Value Reference Range Comments SODIUM (test code=NA) 139 mmol/L 137-145 POTASSIUM (test code=K) 3.7 mmol/L 3.4-5.0 CHLORIDE (test code=CL) 106 mmol/L 98-107 CARBON DIOXIDE (test code=CO2) 26 mmol/L 22-30 GLUCOSE (test code=GLU) 109 mg/dL 74-106 BLOOD UREA NITROGEN (test code=BUN) 11 mg/dL 7-17 GLOMERULAR FILTRATION RATE (test code=GFR) 83 >60 The estimated glomerular filtration rate is computed usingpatient race, age (>18), sex, and serum creatinine. If anyof the needed data elements are missing the Laboratory cannot compute an estimation of the glomerular filtration rate. CREATININE (test code=CREAT) 0.9 mg/dL 0.5-1.0 TOTAL PROTEIN (test code=PROT) 6.9 g/dL 6.3-8.2 ALBUMIN (test code=ALB) 3.2 g/dL 3.5-5.0 CALCIUM (test code=CA) 8.5 mg/dL 8.4-10.2 BILIRUBIN TOTAL (test code=BILT) 0.4 mg/dL 0.2-1.3 BILIRUBIN CONJUGATED (test code=BILCON) 0 mg/dL 0-0.3 ~~~~~~~~~~~~~~~~~~~~~~~~~~~~~~~~~~~~~~~~~~~~~~~~~~~~~~~~~~~~CONJUGATED BILIRUBIN IS THE REPLACEMENT ASSAY FOR DIRECTBILIRUBIN.~~~~~~~~~~~~~~~~~~~~~~~~~~~~~~~~~~~~~~~~~~~~~~~~~~~~~~~~~~~~ BILIRUBIN UNCONJUGATED (test code=BILUNC) 0 mg/dL 0-1.1 SGOT/AST (test code=AST) 68 U/L 15-46 SGPT/ALT (test code=ALT) 38 U/L 13-69 ALKALINE PHOSPHATASE (test code=ALKP) 66 U/L 38-126 [id number] 04:03:00* Test Item Value Reference Range Comments MAGNESIUM (test code=MAG) 1.9 mg/dL 1.6-2.3 TSH REFLEX TO [id number] 04:03:00* Test Item Value Reference Range Comments TSH REFLEX TO FT4 (test code=TSHREFLEX) 2.240 MIU/L 0.465-4.68 A positive bias may occur for patients taking BIOTINsupplements. CD 4 HELPER/INDUCER [id number] 04:03:00* Test Item Value Reference Range Comments CD 4 HELPER/INDUCER MARKER (test code=CD4) 30-61% [id number] 04:03:00* Test Item Value Reference Range Comments PREALBUMIN (test code=PREALB) 9.34 mg/dL 17.6-36.0 COMPREHENSIVE METABOLIC [id number] 03:44:00* Test Item Value Reference Range Comments SODIUM (test code=NA) 139 mmol/L 137-145 POTASSIUM (test code=K) 3.7 mmol/L 3.4-5.0 CHLORIDE (test code=CL) 106 mmol/L 98-107 CARBON DIOXIDE (test code=CO2) 26 mmol/L 22-30 GLUCOSE (test code=GLU) 109 mg/dL 74-106 BLOOD UREA NITROGEN (test code=BUN) 11 mg/dL 7-17 GLOMERULAR FILTRATION RATE (test code=GFR) 83 >60 The estimated glomerular filtration rate is computed usingpatient race, age (>18), sex, and serum creatinine. If anyof the needed data elements are missing the Laboratory cannot compute an estimation of the glomerular filtration rate. CREATININE (test code=CREAT) 0.9 mg/dL 0.5-1.0 TOTAL PROTEIN (test code=PROT) 6.9 g/dL 6.3-8.2 ALBUMIN (test code=ALB) 3.2 g/dL 3.5-5.0 CALCIUM (test code=CA) 8.5 mg/dL 8.4-10.2 BILIRUBIN TOTAL (test code=BILT) 0.4 mg/dL 0.2-1.3 BILIRUBIN CONJUGATED (test code=BILCON) 0 mg/dL 0-0.3 ~~~~~~~~~~~~~~~~~~~~~~~~~~~~~~~~~~~~~~~~~~~~~~~~~~~~~~~~~~~~CONJUGATED BILIRUBIN IS THE REPLACEMENT ASSAY FOR DIRECTBILIRUBIN.~~~~~~~~~~~~~~~~~~~~~~~~~~~~~~~~~~~~~~~~~~~~~~~~~~~~~~~~~~~~ BILIRUBIN UNCONJUGATED (test code=BILUNC) 0 mg/dL 0-1.1 SGOT/AST (test code=AST) 68 U/L 15-46 SGPT/ALT (test code=ALT) 38 U/L 13-69 ALKALINE PHOSPHATASE (test code=ALKP) 66 U/L 38-126 [id number] 03:44:00* Test Item Value Reference Range Comments MAGNESIUM (test code=MAG) 1.9 mg/dL 1.6-2.3 TSH REFLEX TO [id number] 03:44:00* Test Item Value Reference Range Comments TSH REFLEX TO FT4 (test code=TSHREFLEX) MIU/L 0.465-4.68 CD 4 HELPER/INDUCER [id number] 03:44:00* Test Item Value Reference Range Comments CD 4 HELPER/INDUCER MARKER (test code=CD4) 30-61% [id number] 03:44:00* Test Item Value Reference Range Comments PREALBUMIN (test code=PREALB) 9.34 mg/dL 17.6-36.0 COMPREHENSIVE METABOLIC [id number] 03:35:00* Test Item Value Reference Range Comments SODIUM (test code=NA) 139 mmol/L 137-145 POTASSIUM (test code=K) 3.7 mmol/L 3.4-5.0 CHLORIDE (test code=CL) 106 mmol/L 98-107 CARBON DIOXIDE (test code=CO2) 26 mmol/L 22-30 GLUCOSE (test code=GLU) 109 mg/dL 74-106 BLOOD UREA NITROGEN (test code=BUN) 11 mg/dL 7-17 GLOMERULAR FILTRATION RATE (test code=GFR) 83 >60 The estimated glomerular filtration rate is computed usingpatient race, age (>18), sex, and serum creatinine. If anyof the needed data elements are missing the Laboratory cannot compute an estimation of the glomerular filtration rate. CREATININE (test code=CREAT) 0.9 mg/dL 0.5-1.0 TOTAL PROTEIN (test code=PROT) 6.9 g/dL 6.3-8.2 ALBUMIN (test code=ALB) 3.2 g/dL 3.5-5.0 CALCIUM (test code=CA) 8.5 mg/dL 8.4-10.2 BILIRUBIN TOTAL (test code=BILT) 0.4 mg/dL 0.2-1.3 BILIRUBIN CONJUGATED (test code=BILCON) 0 mg/dL 0-0.3 ~~~~~~~~~~~~~~~~~~~~~~~~~~~~~~~~~~~~~~~~~~~~~~~~~~~~~~~~~~~~CONJUGATED BILIRUBIN IS THE REPLACEMENT ASSAY FOR DIRECTBILIRUBIN.~~~~~~~~~~~~~~~~~~~~~~~~~~~~~~~~~~~~~~~~~~~~~~~~~~~~~~~~~~~~ BILIRUBIN UNCONJUGATED (test code=BILUNC) 0 mg/dL 0-1.1 SGOT/AST (test code=AST) 68 U/L 15-46 SGPT/ALT (test code=ALT) 38 U/L 13-69 ALKALINE PHOSPHATASE (test code=ALKP) 66 U/L 38-126 [id number] 03:35:00* Test Item Value Reference Range Comments MAGNESIUM (test code=MAG) 1.9 mg/dL 1.6-2.3 TSH REFLEX TO [id number] 03:35:00* Test Item Value Reference Range Comments TSH REFLEX TO FT4 (test code=TSHREFLEX) MIU/L 0.465-4.68 CD 4 HELPER/INDUCER [id number] 03:35:00* Test Item Value Reference Range Comments CD 4 HELPER/INDUCER MARKER (test code=CD4) 30-61% [id number] 03:35:00* Test Item Value Reference Range Comments PREALBUMIN (test code=PREALB) mg/dL 17.6-36.0 LACTIC [id number] 03:35:00* Test Item Value Reference Range Comments LACTIC ACID (test code=LACT) 0.9 mmol/L 0.7-2.0 [id number] 03:35:00* Test Item Value Reference Range Comments AMMONIA (test code=AMM) < 9 umol/L 9-30 HGBA1C - GLYCOSYLATED [id number] 03:19:00* Test Item Value Reference Range Comments GLYCOSYLATED HEMOGLOBIN (HA1C) (test code=GLYHGB) 5.9 % 0-5.9 Current guidelines recommend a treatment goal of <7% fordiabetic patients. A1c may be overestimated in diabeticpatients exhibiting poor control and who are alsoheterozygous or homozygous for HgbS or HgbC. Totalglycohemoglobin is a better indicator of diabetic control inpatients with these hemoglobin variants. PROTHROMBIN [id number] 03:16:00* Test Item Value Reference Range Comments PROTHROMBIN TIME PATIENT (test code=PTP) 13.1 SECONDS 9.2-12.1 INTERNATIONAL NORMAL RATIO (test code=INR) 1.2 The INR is to be used only for monitoring ORAL ANTICOAGULANTTHERAPY. Indication INR Value1. Prophylaxis/treatment of: Venous Thrombosis, Pulmonary Embolism 2.0 - 3.02. Prevention of systemic embolism from: Tissue heart valves 2.0 - 3.0 Acute myocardial infarction (to present systemic embolism)* 2.0 - 3.0 Valvular heart disease 2.0 - 3.0 Atrial fibrillation 2.0 - 3.03. Mechanical prosthetic valves (high risk) 2.5 - 3.5 * If oral anticoagulant therapy is elected to preventrecurrent myocardial infarction, an INR of 2.5-3.5 isrecommended, consistent with Food and Drug Administrationrecommendations. CBC W/MANUAL [id number] 03:12:00* Test Item Value Reference Range Comments WHITE BLOOD CELL (test code=WBC) 2.4 x10 3/uL 5.0-12.0 RED BLOOD CELL (test code=RBC) 3.45 x10 6/uL 4.20-5.40 HEMOGLOBIN (test code=HGB) 9.7 g/dL 12.0-16.0 HEMATOCRIT (test code=HCT) 32.8 % 36.0-46.0 MEAN CELL VOLUME (test code=MCV) 95 fL 81-99 MEAN CELL HGB (test code=MCH) 28.1 pg 27-31 MEAN CELL HGB CONCENTRATION (test code=MCHC) 29.6 g/dL 33-37 RED CELL DISTRIBUTION WIDTH (test code=RDW) 12.9 % 11.5-15.5 PLATELET COUNT (test code=PLT) 152 x10 3/uL 130-400 MEAN PLATELET VOLUME (test code=MPV) 10.3 fL 9.4-16.4 TOTAL CELLS COUNTED (test code=TCC) #CELLS SEGMENTED NEUTROPHILS (test code=SEG) % 43-65 LYMPHOCYTE (test code=LYMPH) % 20.5-45.5 CBC W/MANUAL [id number] 03:12:00* Test Item Value Reference Range Comments WHITE BLOOD CELL (test code=WBC) 2.4 x10 3/uL 5.0-12.0 RED BLOOD CELL (test code=RBC) 3.45 x10 6/uL 4.20-5.40 HEMOGLOBIN (test code=HGB) 9.7 g/dL 12.0-16.0 HEMATOCRIT (test code=HCT) 32.8 % 36.0-46.0 MEAN CELL VOLUME (test code=MCV) 95 fL 81-99 MEAN CELL HGB (test code=MCH) 28.1 pg 27-31 MEAN CELL HGB CONCENTRATION (test code=MCHC) 29.6 g/dL 33-37 RED CELL DISTRIBUTION WIDTH (test code=RDW) 12.9 % 11.5-15.5 PLATELET COUNT (test code=PLT) 152 x10 3/uL 130-400 MEAN PLATELET VOLUME (test code=MPV) 10.3 fL 9.4-16.4 TOTAL CELLS COUNTED (test code=TCC) #CELLS SEGMENTED NEUTROPHILS (test code=SEG) % 43-65 LYMPHOCYTE (test code=LYMPH) % 20.5-45.5 PROCALCITONIN (PCT)2019-05-12 02:23:00* Test Item Value Reference Range Comments PROCALCITONIN (PCT) (test code=PROCAL) < 0.05 ng/ml Concentration Interpretation (ng/mL) <0.51 Sepsis is not likely. Local bacterial infection is possible. (LOW RISK for progression to Sepsis) 0.51 - 2.00 Sepsis is possible, but other conditions are known to elevate PCT as well. (MODERATE RISK for progression to Sepsis) > 2.00 Sepsis is likely, unless other causes are known. (HIGH RISK for progression to Severe Sepsis or Septic Shock) 10.00 High likelihood of Severe Sepsis or Septic or higher Shock. *Increased PCT levels may not always be related to systemic bacterial infection.*Low PCT levels do not automatically exclude the presence of bacterial infection.*All results should be interpreted taking into account the patients history. LACTIC [id number] 23:05:00* Test Item Value Reference Range Comments LACTIC ACID (test code=LACT) 0.5 mmol/L 0.4-1.9 - CT HEAD/BRAIN W/O [id number] 21:06:00 Name: VANESSA DUGGAN [facility] FSED : 1960 Age/S: 58 / F [address] [facility] [address] Unit #: [id number] Loc: [address] Phys: Carlita Trejo DO [place], [place] [address] Acct: [id number] Dis Date: Status: REG ER PHONE #: Exam Date: 05/11/20192100 FAX #: Reason: headache EXAMS: CPT CODE: [id number] CT HEAD/BRAIN W/O CONT [id number] REASON FOR EXAM: headache EXAM ORDER DATE: 05/11/2019 7:29 PM Ordering Raul: Carlita Trejo DO PROCEDURE: - CT HEAD/BRAIN W/O CONT COMPARISON: FINDINGS: CT images of the brain were obtained without IV contrast. Dose modulation, iterative reconstruction, and/or weight based adjustment of the MA/KV was utilized to reduce the radiation dose to as low as reasonably achievable. Mild patchy low densities appearance of the paraventricular region noted consistent with nonspecific white matter disease. The otto-white matter delineation is unremarkable. The ventricles, cisterns, and sulci are unremarkable. There is no evidence of hemorrhage, mass, mass effect. There is no evidence of acute or old infarct. The calvarium is intact. IMPRESSION: Nonspecific deep white matter disease. 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 Rec ommend follow-up with MRI as outpatient at 2105 Reported and signed by: Brady Decker M.D. CC: Carlita Trejo DO Technologist:Gilbert Doss CTDI: DLP: Trnscb Date/Time: 05/11/2019 (2105) Quan Orig Print D/T: S: 05/11/2019 (2109) PAGE 1 Signed Report - XR CHEST 1 [id number] 20:51:00 FAX: Carlita Trejo DO [place]: [place] [address]: [facility] [birth year] Age/S: 58/F [address] [facility] N Unit #: [id number] Loc: SARA Ruelas B Phys: Carlita Trejo DO [place], [place] [address] Acct: [id number] Dis Date: Status: REG ER PHONE #: Exam Date: 05/11/20192048 FAX #: Reason: fever EXAMS: CPT CODE: [id number] XR CHEST 1 V [id number] REASON FOR EXAM: fever EXAM ORDER DATE: 05/11/2019 7:31 PM Ordering MToya: Carlita rios DO PROCEDURE: - XR CHEST 1 V COMPARISON: FINDINGS: Portable AP frontal view of the chest obtained at 8:35 PM shows clear lungs without evidence of consolidation. There is no ev idence of effusion. The heart size is within normal limits. Pulmonary vasc ulatures are unremarkable. IMPRESSION: No active disease. at 2050 Reported and signed by: Brady Decker M.D. CC: Carlita Heart DO Technologist: Gilbert Doss Trnscrd Date/Time/By: 05/11/2019 (2050) : By: Juan ML Orig Print D/T: S: 05/11/2019 (2053) PAGE 1 Signed Report COMPREHENSIVE METABOLIC [id number] 18:42:00* Test Item Value Reference Range Comments SODIUM (test code=NA) 142 mmol/L 128-145 POTASSIUM (test code=K) 3.7 mmol/L 3.5-5.1 CHLORIDE (test code=CL) 107.0 mmol/L 98-107 CARBON DIOXIDE (test code=CO2) 25.7 mmol/L 22-29 ANION GAP (test code=GAP) 13 mmol/L 10-20 GLUCOSE (test code=GLU) 83 mg/dL 70-110 BLOOD UREA NITROGEN (test code=BUN) 10 mg/dL 7-22 CREATININE (test code=CREAT) 1.03 mg/dL 0.55-1.3 BUN/CREATININE RATIO (test code=BUN/CREA) 9.7 10-20 TOTAL PROTEIN (test code=PROT) 6.6 gram/dL 6.1-7.8 ALBUMIN (test code=ALB) 2.8 g/dL 3.3-4.4 GLOBULIN (test code=GLOB) 3.8 G/DL 1-10 ALBUMIN/GLOBULIN RATIO (test code=A/G) 0.7 0.75-1.50 CALCIUM (test code=CA) 8.2 mg/dL 8.0-10.5 BILIRUBIN TOTAL (test code=BILT) 0.40 mg/dL 0.2-1.2 SGOT/AST (test code=AST) 44 U/L 10-39 SGPT/ALT (test code=ALT) 33 U/L 10-69 ALKALINE PHOSPHATASE TOTAL (test code=ALKP) 64 U/L 50-139 CREATINE KINASE (CK)2019-05-11 18:42:00* Test Item Value Reference Range Comments CREATINE KINASE (CK) (test code=CK) 55 U/L 26-192 COMPREHENSIVE METABOLIC [id number] 18:37:00* Test Item Value Reference Range Comments SODIUM (test code=NA) 142 mmol/L 128-145 POTASSIUM (test code=K) 3.7 mmol/L 3.5-5.1 CHLORIDE (test code=CL) 107.0 mmol/L 98-107 CARBON DIOXIDE (test code=CO2) 25.7 mmol/L 22-29 ANION GAP (test code=GAP) 13 mmol/L 10-20 GLUCOSE (test code=GLU) 83 mg/dL 70-110 BLOOD UREA NITROGEN (test code=BUN) 10 mg/dL 7-22 CREATININE (test code=CREAT) 1.03 mg/dL 0.55-1.3 BUN/CREATININE RATIO (test code=BUN/CREA) 9.7 10-20 TOTAL PROTEIN (test code=PROT) gram/dL 6.4-8.2 ALBUMIN (test code=ALB) g/dL 3.4-5.0 GLOBULIN (test code=GLOB) G/DL 1-10 ALBUMIN/GLOBULIN RATIO (test code=A/G) 0.75-1.50 CALCIUM (test code=CA) 8.2 mg/dL 8.0-10.5 BILIRUBIN TOTAL (test code=BILT) mg/dL 0.0-1.0 SGOT/AST (test code=AST) IUnit/L 15-37 SGPT/ALT (test code=ALT) IUnit/L 12-78 ALKALINE PHOSPHATASE TOTAL (test code=ALKP) IUnit/L 45-117 CREATINE KINASE (CK)2019-05-11 18:37:00* Test Item Value Reference Range Comments CREATINE KINASE (CK) (test code=CK) U/L 26-192 CBC W/AUTO [id number] 18:28:00* Test Item Value Reference Range Comments WHITE BLOOD CELL (test code=WBC) 3.7 K/mm3 4.5-12.5 RED BLOOD CELL (test code=RBC) 3.16 mill/mm3 3.7-5.2 HEMOGLOBIN (test code=HGB) 9.1 gram/dL 11.5-15.5 HEMATOCRIT (test code=HCT) 30.1 % 36.0-46.0 MEAN CELL VOLUME (test code=MCV) 95.3 fL 80-98 MEAN CELL HGB (test code=MCH) 28.8 picogram 27.0-33.0 MEAN CELL HGB CONCETRATION (test code=MCHC) 30.2 gram/dL 33.0-36.0 RED CELL DISTRIBUTION WIDTH (test code=RDW) 12.8 % 11.6-16.2 RED CELL DISTRIBUTION WIDTH SD (test code=RDW-SD) 44.8 fL 37.0-51.0 PLATELET COUNT (test code=PLT) 137 K/mm3 150-450 MEAN PLATELET VOLUME (test code=MPV) 9.6 fL 6.7-11.0 NEUTROPHIL % (test code=NT%) 26.7 % 39.0-69.0 LYMPHOCYTE % (test code=LY%) 60.1 % 25.0-55.0 MONOCYTE % (test code=MO%) 7.7 % 0.0-10.0 EOSINOPHIL % (test code=EO%) 5.2 % 0.0-5.0 BASOPHIL % (test code=BA%) 0.3 % 0.0-1.0 NEUTROPHIL # (test code=NT#) 0.98 K/mm3 1.8-7.7 LYMPHOCYTE # (test code=LY#) 2.20 K/mm3 1.0-5.0 MONOCYTE # (test code=MO#) 0.28 K/mm3 0-0.8 EOSINOPHIL # (test code=EO#) 0.19 K/mm3 0.0-0.5 BASOPHIL # (test code=BA#) 0.01 K/mm3 0.0-0.2 MANUAL DIFF REQUIRED (test code=MDIFF) NO COMPREHENSIVE METABOLIC [id number] 05:53:00* Test Item Value Reference Range Comments SODIUM (test code=NA) 142.0 mmol/L 133-144 POTASSIUM (test code=K) 3.4 mmol/L 3.5-5.1 CHLORIDE (test code=CL) 111 mmol/L 95-105 CARBON DIOXIDE (test code=CO2) 24 mmol/L 21-32 ANION GAP (test code=GAP) 7.0 GAP calc 4.0-15.0 GLUCOSE (test code=GLU) 89 MG/DL 70-110 BLOOD UREA NITROGEN (test code=BUN) 15 MG/DL 7-18 GLOMERULAR FILTRATION RATE (test code=GFR) 78 estGFR >60 The estimated glomerular filtration rate is computed usingpatient race, age, sex, and serum creatinine. If any of theneeded data elements are missing the Laboratory can notcompute an estimation of the glomerular filtration rate.The GFR value units=ml/min/1.73 meter squared. EstimatedGFR values above 60 should be interpreted as >60, not anexact number.--- DRUG DOSAGE ALERT --- Drug dosage adjustments utilize different calculationparameters. CREATININE (test code=CREAT) 0.90 MG/DL 0.55-1.30 Results may be depressed if patient is takingN-Acetylcysteine (NAC) and Metamizole (Dipyrone). TOTAL PROTEIN (test code=PROT) 5.9 G/DL 6.4-8.2 ALBUMIN (test code=ALB) 2.2 G/DL 3.4-5.0 ALBUMIN/GLOBULIN RATIO (test code=A/G) 0.6 RATIO 1.2-2.2 CALCIUM (test code=CA) 7.9 MG/DL 8.5-10.1 BILIRUBIN TOTAL (test code=BILT) 0.17 MG/DL 0.00-1.00 BILIRUBIN DIRECT (test code=BILD) < 0.10 MG/DL 0.00-0.30 BILIRUBIN INDIRECT (test code=BILIND) 0.17 MG/DL 0.2-1.3 SGOT/AST (test code=AST) 28 Unit/L 15-37 SGPT/ALT (test code=ALT) 24 Unit/L 12-78 ALKALINE PHOSPHATASE TOTAL (test code=ALKP) 48 Unit/L 45-117 INDEX HEMOLYSIS (test code=HEMINDEX) 1 NORMAL <10 MG Index/DL 1 NORMAL INDEX ICTERIC (test code=ICTINDEX) 1 NORMAL <2 MG Index/DL 1 NORMAL INDEX LIPEMIA (test code=LIPINDEX) 1 NORMAL <50 MG Index/DL 1 NORMAL COMPREHENSIVE METABOLIC [id number] 05:50:00* Test Item Value Reference Range Comments SODIUM (test code=NA) 142.0 mmol/L 133-144 POTASSIUM (test code=K) 3.4 mmol/L 3.5-5.1 CHLORIDE (test code=CL) 111 mmol/L 95-105 CARBON DIOXIDE (test code=CO2) 24 mmol/L 21-32 ANION GAP (test code=GAP) 7.0 GAP calc 4.0-15.0 GLUCOSE (test code=GLU) 89 MG/DL 70-110 BLOOD UREA NITROGEN (test code=BUN) 15 MG/DL 7-18 CREATININE (test code=CREAT) MG/DL 0.55-1.30 TOTAL PROTEIN (test code=PROT) G/DL 6.4-8.2 ALBUMIN (test code=ALB) 2.2 G/DL 3.4-5.0 ALBUMIN/GLOBULIN RATIO (test code=A/G) RATIO 1.2-2.2 CALCIUM (test code=CA) 7.9 MG/DL 8.5-10.1 BILIRUBIN TOTAL (test code=BILT) MG/DL 0.00-1.00 BILIRUBIN DIRECT (test code=BILD) < 0.10 MG/DL 0.00-0.30 BILIRUBIN INDIRECT (test code=BILIND) MG/DL 0.2-1.3 SGOT/AST (test code=AST) Unit/L 15-37 SGPT/ALT (test code=ALT) Unit/L 12-78 ALKALINE PHOSPHATASE TOTAL (test code=ALKP) Unit/L 45-117 INDEX HEMOLYSIS (test code=HEMINDEX) 1 NORMAL <10 MG Index/DL 1 NORMAL INDEX ICTERIC (test code=ICTINDEX) 1 NORMAL <2 MG Index/DL 1 NORMAL INDEX LIPEMIA (test code=LIPINDEX) 1 NORMAL <50 MG Index/DL 1 NORMAL CBC W/AUTO [id number] 05:35:00* Test Item Value Reference Range Comments WHITE BLOOD CELL (test code=WBC) 3.2 K/mm3 4.1-12.1 RED BLOOD CELL (test code=RBC) 3.48 M/mm3 3.8-5.5 HEMOGLOBIN (test code=HGB) 9.7 G/DL 10.6-15.8 HEMATOCRIT (test code=HCT) 31.9 % 31.8-47.4 MEAN CELL VOLUME (test code=MCV) 91.7 fL 80.1-101.1 MEAN CELL HGB (test code=MCH) 27.9 pg 25.3-35.3 MEAN CELL HGB CONCETRATION (test code=MCHC) 30.4 G/DL 32.7-35.1 RED CELL DISTRIBUTION WIDTH (test code=RDW) 12.6 % 12.2-16.4 RED CELL DISTRIBUTION WIDTH (test code=RDW-SD) 41.9 fL 36.4-46.3 PLATELET COUNT (test code=PLT) 252 K/mm3 155-337 MEAN PLATELET VOLUME (test code=MPV) 10.4 fL 6.8-11.2 GRANULOCYTE % (test code=GR%) 38.5 % 37.8-82.6 IMMATURE GRANULOCYTE % (test code=IG%) 0.3 % 0.0-2.0 LYMPHOCYTE % (test code=LY%) 45.4 % 14.1-45.4 MONOCYTE % (test code=MO%) 9.0 % 2.5-11.7 EOSINOPHIL % (test code=EO%) 6.5 % 0.0-6.2 BASOPHIL % (test code=BA%) 0.3 % 0.0-2.1 NUCLEATED RBC % (test code=NRBC%) 0.0 /100WBC% 0.0-1.0 GRANULOCYTE # (test code=GR#) 1.25 k/mm3 2.0-13.7 IMMATURE GRANULOCYTE # (test code=IG#) 0.01 K/mm3 0.00-0.03 LYMPHOCYTE # (test code=LY#) 1.47 K/mm3 0.6-3.8 MONOCYTE # (test code=MO#) 0.29 K/mm3 0.11-0.59 EOSINOPHIL # (test code=EO#) 0.21 K/mm3 0.0-0.4 BASOPHIL # (test code=BA#) 0.01 K/mm3 0.0-0.1 NUCLEATED RBC # (test code=NRBC#) 0.00 K/mm3 0.0-0.05 LACTIC [id number] 19:32:00* Test Item Value Reference Range Comments LACTIC ACID (test code=LACT) 2.5 mmol/L 0.4-2.0 ON 05/01/19 AT 1929, B.LAB.TVA CALLED TO ELIZABETH ACOSTA. The report was confirmed by read back protocols Y,N: Y. Critical values after the first occurrence are excluded. Specimen comments: SEPSIS WORKUPComments to Senior Ui Web Developer: ccLACTIC ACID 2019-05-01 15:25:00* Test Item Value Reference Range Comments LACTIC ACID (test code=LACT) 1.7 mmol/L 0.4-2.0 Specimen comments: SEPSIS WORKUPComments to Senior Ui Web Developer: ccHEPATIC FUNCTION [id number] 08:28:00* Test Item Value Reference Range Comments TOTAL PROTEIN (test code=PROT) 7.5 G/DL 6.4-8.2 ALBUMIN (test code=ALB) 2.7 G/DL 3.4-5.0 BILIRUBIN TOTAL (test code=BILT) 0.38 MG/DL 0.00-1.00 BILIRUBIN DIRECT (test code=BILD) 0.17 MG/DL 0.00-0.30 BILIRUBIN INDIRECT (test code=BILIND) 0.21 MG/DL 0.2-1.3 SGOT/AST (test code=AST) 41 Unit/L 15-37 SGPT/ALT (test code=ALT) 34 Unit/L 12-78 ALKALINE PHOSPHATASE TOTAL (test code=ALKP) 66 Unit/L 45-117 INDEX HEMOLYSIS (test code=HEMINDEX) 1 NORMAL <10 MG Index/DL 1 NORMAL INDEX ICTERIC (test code=ICTINDEX) 1 NORMAL <2 MG Index/DL 1 NORMAL INDEX LIPEMIA (test code=LIPINDEX) 1 NORMAL <50 MG Index/DL 1 NORMAL Specimen comments: SEPSIS WORKUPComments to Senior Ui Web Developer: [id number] 08:28:00* Test Item Value Reference Range Comments TROPONIN-I (test code=TROPI) < 0.015 NG/ML 0.000-0.045 An elevated troponin value alone is not sufficient todiagnose a myocardial infarction. Rather, the patient'sclinical presentation (history, physical exam) and ECGshould be used in conjunction with troponin in thediagnostic evaluation of suspected myocardial infarction. Aserial sampling protocol is recommended to facilitate theidentification of temporal changes in troponin levelscharacteristic of DC. Specimen comments: SEPSIS WORKUPComments to Senior Ui Web Developer: ccPROCALCITONIN (PCT) 2019-05-01 08:28:00* Test Item Value Reference Range Comments PROCALCITONIN (PCT) (test code=PROCAL) 0.09 NG/ML 0.00-0.10 PROCALCITONIN (PCT) NORMAL RANGE (ADULT) <0.05 NG/ML-normal <0.50 NG/ML-low risk of severe sepsis and/or septic shock >2.00 NG/ML-high risk of severe sepsis and/or septic shcock Concentrations of <0.5 ng/mL do not exclude an infection.Localized infections (without systemic signs) or a systemicinfection in its initial stages (<6 hours) can be associatedwith such low concentrations. It is recommended to retestPCT within 6-24 hours if concentrations <2 NG/ML. Specimen comments: SEPSIS WORKUPComments to Senior Ui Web Developer: ccHEPATIC FUNCTION [id number] 08:24:00* Test Item Value Reference Range Comments TOTAL PROTEIN (test code=PROT) 7.5 G/DL 6.4-8.2 ALBUMIN (test code=ALB) 2.7 G/DL 3.4-5.0 BILIRUBIN TOTAL (test code=BILT) 0.38 MG/DL 0.00-1.00 BILIRUBIN DIRECT (test code=BILD) 0.17 MG/DL 0.00-0.30 BILIRUBIN INDIRECT (test code=BILIND) 0.21 MG/DL 0.2-1.3 SGOT/AST (test code=AST) 41 Unit/L 15-37 SGPT/ALT (test code=ALT) 34 Unit/L 12-78 ALKALINE PHOSPHATASE TOTAL (test code=ALKP) 66 Unit/L 45-117 INDEX HEMOLYSIS (test code=HEMINDEX) 1 NORMAL <10 MG Index/DL 1 NORMAL INDEX ICTERIC (test code=ICTINDEX) 1 NORMAL <2 MG Index/DL 1 NORMAL INDEX LIPEMIA (test code=LIPINDEX) 1 NORMAL <50 MG Index/DL 1 NORMAL Specimen comments: SEPSIS WORKUPComments to Senior Ui Web Developer: [id number] 08:24:00* Test Item Value Reference Range Comments TROPONIN-I (test code=TROPI) < 0.015 NG/ML 0.000-0.045 An elevated troponin value alone is not sufficient todiagnose a myocardial infarction. Rather, the patient'sclinical presentation (history, physical exam) and ECGshould be used in conjunction with troponin in thediagnostic evaluation of suspected myocardial infarction. Aserial sampling protocol is recommended to facilitate theidentification of temporal changes in troponin levelscharacteristic of DC. Specimen comments: SEPSIS WORKUPComments to Senior Ui Web Developer: ccPROCALCITONIN (PCT) 2019-05-01 08:24:00* Test Item Value Reference Range Comments PROCALCITONIN (PCT) (test code=PROCAL) NG/ML 0.00-0.10 Specimen comments: SEPSIS WORKUPComments to Senior Ui Web Developer: ccURINALYSIS COMPLETE 2019-05-01 08:23:00* Test Item Value Reference Range Comments UA COLOR (test code=COLU) YELLOW DESCRIPT YELLOW UA APPEARANCE (test code=APPU) CLEAR DESCRIPT CLEAR UA GLUCOSE DIPSTICK (test code=DGLUU) NEGATIVE (0) mg/dL (NEG) 0 UA BILIRUBIN DIPSTICK (test code=BILU) NEGATIVE (0) mg/dL (NEG) 0 UA KETONE DIPSTICK (test code=KETU) TRACE mg/dL (NEG) 0 UA SPECIFIC GRAVITY (test code=SGU) 1.012 SG 1.001-1.035 UA BLOOD DIPSTICK (test code=DEVORA) NEGATIVE (0) mg/DL (NEG) 0 UA PH DIPSTICK (test code=JEAN-PIERRE) 5.0 pH UNITS 4.6-8.0 UA PROTEIN DIPSTICK (test code=PROU) NEGATIVE (0) mg/dL <30 (1+) UA UROBILINIOGEN DIPSTICK (test code=URO) NORMAL (0) mg/dL <2.0 (1+) UA NITRITE DIPSTICK (test code=NAILA) NEGATIVE (0) SCREEN NEG UA LEUKOCYTE ESTERASE DIPSTICK (test code=LEUU) 75 (1+) Leuk/mcL (NEG) 0 UA WBC (test code=WBCU) 5-10 #WBC/HPF 0-3 UA RBC (test code=RBCU) 0-3 #RBC/HPF 0-3 UA BACTERIA (test code=BACU) TRACE >0 /HPF NONE-FEW UA SQUAMOUS CELLS (test code=SQU) FEW >2 /HPF NONE-SQepi UA GRANULAR CAST (test code=GRANU) 5-10 #/LPF NONE UA MUCUS (test code=MUCU) RARE /LPF NONE Specimen comments: SEPSIS WORKUPComments to Senior Ui Web Developer: ccUA RFLX MICR CULT IF [id number] 08:23:00* Test Item Value Reference Range Comments UA CULTURE NEEDED? (test code=UACULT) Criteria Culture CHK Specimen comments: SEPSIS WORKUPComments to Senior Ui Web Developer: ccURINALYSIS COMPLETE 2019-05-01 08:23:00* Test Item Value Reference Range Comments UA COLOR (test code=COLU) YELLOW DESCRIPT YELLOW UA APPEARANCE (test code=APPU) CLEAR DESCRIPT CLEAR UA GLUCOSE DIPSTICK (test code=DGLUU) NEGATIVE (0) mg/dL (NEG) 0 UA BILIRUBIN DIPSTICK (test code=BILU) NEGATIVE (0) mg/dL (NEG) 0 UA KETONE DIPSTICK (test code=KETU) TRACE mg/dL (NEG) 0 UA SPECIFIC GRAVITY (test code=SGU) 1.012 SG 1.001-1.035 UA BLOOD DIPSTICK (test code=DEVORA) NEGATIVE (0) mg/DL (NEG) 0 UA PH DIPSTICK (test code=JEAN-PIERRE) 5.0 pH UNITS 4.6-8.0 UA PROTEIN DIPSTICK (test code=PROU) NEGATIVE (0) mg/dL <30 (1+) UA UROBILINIOGEN DIPSTICK (test code=URO) NORMAL (0) mg/dL <2.0 (1+) UA NITRITE DIPSTICK (test code=NAILA) NEGATIVE (0) SCREEN NEG UA LEUKOCYTE ESTERASE DIPSTICK (test code=LEUU) 75 (1+) Leuk/mcL (NEG) 0 UA WBC (test code=WBCU) 5-10 #WBC/HPF 0-3 UA RBC (test code=RBCU) 0-3 #RBC/HPF 0-3 UA BACTERIA (test code=BACU) TRACE >0 /HPF NONE-FEW UA SQUAMOUS CELLS (test code=SQU) FEW >2 /HPF NONE-SQepi UA GRANULAR CAST (test code=GRANU) 5-10 #/LPF NONE UA MUCUS (test code=MUCU) RARE /LPF NONE Specimen comments: SEPSIS WORKUPComments to Senior Ui Web Developer: ccUA RFLX MICR CULT IF [id number] 08:23:00* Test Item Value Reference Range Comments UA CULTURE NEEDED? (test code=UACULT) Crit-NOTmet CULT DEL Criteria Culture CHK Specimen comments: SEPSIS WORKUPComments to Senior Ui Web Developer: ccURINALYSIS COMPLETE 2019-05-01 08:22:00* Test Item Value Reference Range Comments UA COLOR (test code=COLU) YELLOW DESCRIPT YELLOW UA APPEARANCE (test code=APPU) CLEAR DESCRIPT CLEAR UA GLUCOSE DIPSTICK (test code=DGLUU) NEGATIVE (0) mg/dL (NEG) 0 UA BILIRUBIN DIPSTICK (test code=BILU) NEGATIVE (0) mg/dL (NEG) 0 UA KETONE DIPSTICK (test code=KETU) TRACE mg/dL (NEG) 0 UA SPECIFIC GRAVITY (test code=SGU) 1.012 SG 1.001-1.035 UA BLOOD DIPSTICK (test code=DEVORA) NEGATIVE (0) mg/DL (NEG) 0 UA PH DIPSTICK (test code=JEAN-PIERRE) 5.0 pH UNITS 4.6-8.0 UA PROTEIN DIPSTICK (test code=PROU) NEGATIVE (0) mg/dL <30 (1+) UA UROBILINIOGEN DIPSTICK (test code=URO) NORMAL (0) mg/dL <2.0 (1+) UA NITRITE DIPSTICK (test code=NAILA) NEGATIVE (0) SCREEN NEG UA LEUKOCYTE ESTERASE DIPSTICK (test code=LEUU) 75 (1+) Leuk/mcL (NEG) 0 UA RBC (test code=RBCU) #RBC/HPF 0-3 Specimen comments: SEPSIS WORKUPComments to Senior Ui Web Developer: ccUA RFLX MICR CULT IF [id number] 08:22:00* Test Item Value Reference Range Comments UA CULTURE NEEDED? (test code=UACULT) Criteria Culture CHK Specimen comments: SEPSIS WORKUPComments to Senior Ui Web Developer: ccHEPATIC FUNCTION [id number] 08:18:00* Test Item Value Reference Range Comments TOTAL PROTEIN (test code=PROT) G/DL 6.4-8.2 ALBUMIN (test code=ALB) 2.7 G/DL 3.4-5.0 BILIRUBIN TOTAL (test code=BILT) MG/DL 0.00-1.00 BILIRUBIN DIRECT (test code=BILD) MG/DL 0.00-0.30 BILIRUBIN INDIRECT (test code=BILIND) MG/DL 0.2-1.3 SGOT/AST (test code=AST) Unit/L 15-37 SGPT/ALT (test code=ALT) Unit/L 12-78 ALKALINE PHOSPHATASE TOTAL (test code=ALKP) Unit/L 45-117 INDEX HEMOLYSIS (test code=HEMINDEX) 1 NORMAL <10 MG Index/DL 1 NORMAL INDEX ICTERIC (test code=ICTINDEX) 1 NORMAL <2 MG Index/DL 1 NORMAL INDEX LIPEMIA (test code=LIPINDEX) 1 NORMAL <50 MG Index/DL 1 NORMAL Specimen comments: SEPSIS WORKUPComments to Senior Ui Web Developer: [id number] 08:18:00* Test Item Value Reference Range Comments TROPONIN-I (test code=TROPI) NG/ML 0.000-0.045 Specimen comments: SEPSIS WORKUPComments to Senior Ui Web Developer: ccPROCALCITONIN (PCT) 2019-05-01 08:18:00* Test Item Value Reference Range Comments PROCALCITONIN (PCT) (test code=PROCAL) NG/ML 0.00-0.10 Specimen comments: SEPSIS WORKUPComments to Senior Ui Web Developer: ccCBC W/AUTO DIFF 2019-05-01 08:01:00* Test Item Value Reference Range Comments WHITE BLOOD CELL (test code=WBC) 3.4 K/mm3 4.1-12.1 RED BLOOD CELL (test code=RBC) 3.83 M/mm3 3.8-5.5 HEMOGLOBIN (test code=HGB) 11.1 G/DL 10.6-15.8 HEMATOCRIT (test code=HCT) 35.2 % 31.8-47.4 MEAN CELL VOLUME (test code=MCV) 91.9 fL 80.1-101.1 MEAN CELL HGB (test code=MCH) 29.0 pg 25.3-35.3 MEAN CELL HGB CONCETRATION (test code=MCHC) 31.5 G/DL 32.7-35.1 RED CELL DISTRIBUTION WIDTH (test code=RDW) 12.6 % 12.2-16.4 RED CELL DISTRIBUTION WIDTH (test code=RDW-SD) 42.1 fL 36.4-46.3 PLATELET COUNT (test code=PLT) 241 K/mm3 155-337 MEAN PLATELET VOLUME (test code=MPV) 10.0 fL 6.8-11.2 GRANULOCYTE % (test code=GR%) 61.1 % 37.8-82.6 IMMATURE GRANULOCYTE % (test code=IG%) 0.0 % 0.0-2.0 LYMPHOCYTE % (test code=LY%) 35.6 % 14.1-45.4 MONOCYTE % (test code=MO%) 3.0 % 2.5-11.7 EOSINOPHIL % (test code=EO%) 0.0 % 0.0-6.2 BASOPHIL % (test code=BA%) 0.3 % 0.0-2.1 NUCLEATED RBC % (test code=NRBC%) 0.0 /100WBC% 0.0-1.0 GRANULOCYTE # (test code=GR#) 2.06 k/mm3 2.0-13.7 IMMATURE GRANULOCYTE # (test code=IG#) 0.00 K/mm3 0.00-0.03 LYMPHOCYTE # (test code=LY#) 1.20 K/mm3 0.6-3.8 MONOCYTE # (test code=MO#) 0.10 K/mm3 0.11-0.59 EOSINOPHIL # (test code=EO#) 0.00 K/mm3 0.0-0.4 BASOPHIL # (test code=BA#) 0.01 K/mm3 0.0-0.1 NUCLEATED RBC # (test code=NRBC#) 0.00 K/mm3 0.0-0.05 Specimen comments: SEPSIS WORKUPComments to Senior Ui Web Developer: ccLACTIC ACID POC 2019-05-01 07:53:00* Test Item Value Reference Range Comments LACTIC ACID POC (test code=LACTP) 0.88 MMOL/L i 0.40-2.00 CHEMISTRY 7 [id number] 07:53:00* Test Item Value Reference Range Comments IONIZED CALCIUM (test code=CAIABG) mmol/L 1.13-1.32 ISTAT-TCO2 VENOUS (test code=TCO2VP) MMOL/L 21-32 ISTAT-SODIUM (test code=NAP) MMOL/L 135-148 ISTAT-POTASSIUM (test code=KP) MMOL/L 3.5-5.9 ISTAT-CHLORIDE (test code=CLP) MMOL/L 98-106 ISTAT-ANION GAP (test code=GAPP) MEQ/L 10-20 ISTAT-GLUCOSE (test code=GLUP) MG/DL 70-119 ISTAT-BUN (test code=BUNP) MG/DL 8-28 BEDSIDE CREATININE (test code=CREATBED) MG/DL 0.6-1.2 GLOMERULAR FILTRATION RATE POC (test code=GFRBED) 56 51-120 CHEMISTRY 7 [id number] 07:53:00* Test Item Value Reference Range Comments IONIZED CALCIUM (test code=CAIABG) 1.27 mmol/L 1.13-1.32 ISTAT-TCO2 VENOUS (test code=TCO2VP) 23 MMOL/L 21-32 ISTAT-SAMPLE SOURCE (test code=SRCIST) UNKNOWN SPEC TYPE Descript Specimen ISTAT-SODIUM (test code=NAP) 140 MMOL/L 135-148 ISTAT-POTASSIUM (test code=KP) 4.0 MMOL/L 3.5-5.9 ISTAT-CHLORIDE (test code=CLP) 104 MMOL/L 98-106 ISTAT-ANION GAP (test code=GAPP) 18.0 MEQ/L 10-20 ISTAT-GLUCOSE (test code=GLUP) 119 MG/DL 70-119 ISTAT-BUN (test code=BUNP) 22 MG/DL 8-28 BEDSIDE CREATININE (test code=CREATBED) 1.2 MG/DL 0.6-1.2 GLOMERULAR FILTRATION RATE POC (test code=GFRBED) 56 51-120 - XR CHEST 1 [id number] 18:17:00 Name: VANESSA DUGGAN [facility]ly [facility] : 1960 Age/S: 58 / F [address] Unit #: [id number] Loc: [place] [address] Phys: Taz Lowery MD Acct: [id number] Dis Date: Status: PRE ER PHONE #: [phone] Exam Date: 04/26/20191812 FAX #: Reason: cough EXAMS: CPT: [id number] XR CHEST 1 V 22281 Fluoro Time: DAP (Gy m2): Air Kerma (mGy): EXAM: CHEST ONE VIEW INDICATION: COUGH LOCATION: B2 COMPARISON: June 10, 2014 TECHNIQUE: AP view of the chest FINDINGS: The heart size is normal. The lungs are clear bilaterally. The pulmonary vasculature is normal. No pneumothorax or pleural effusion is identified. The osseous structures are normal. IMPRESSION: No acute cardiopulmonary process. at 181 Reported and signed by: Patty Muñoz M.D. CC: Taz Lowery MD PAGE 1 Signed Report Name: VANESSA DUGGAN [facility]ly [facility] : 1960 Age/S: 58 / F [address] Unit #: [id number] Loc: [place] [address] Phys: Taz Lowery MD Acct: [id number] Dis Date: Status: PRE ER PHONE #: [phone] Exam Date: 04/26/2019 181 FAX #: Reason: cough EXAMS: CPT: [id number] XR CHEST 1 V 26522 Fluoro Time: DAP (Gy m2): Air Kerma (mGy): < Continued> Technologist: RT Jayda(R) Trnscb Date/Time: 04/26/2019 (1816) 16 Orig Print D/T: S: 04/26/2019 (1819) PAGE 2 Signed Report XR Wrist Complete 3+ Views [id number] 10:34:37Patient: VANESSA DUGGAN Date/Time04/22/2019 10:22 CDTReason for ExamInjuryReportXR Hand Complete 3+ Views Left, XR Wrist Complete 3+ Views LeftCLINICAL INFORMATION: InjuryCOMPARISONS: None available.FINDINGS:AP, lateral, and oblique images of the left hand and left wrist were submitted.There is a comminuted fracture through the base of the fifth proximal phalanx. Intra- articular extension is noted. No other fracture is identified. The bones of the wrist are intact. 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.IMPRESSION:Comminuted intra-articular fracture through the base of the fifth proximal phalanx.Location: R16 Final Dictated by: MD Mccloud Adam FDictated DT/TM: 04/22/2019 10:26 amSigned by: MD Mccloud Adam FSigned (Electronic Signature): 04/22/2019 10:34 amXR Hand Complete 3+ Views [id number] 10:34:37Patient: VANESSA DUGGAN Date/Time04/22/2019 10:22 CDTReason for ExamInjuryReportXR Hand Complete 3+ Views Left, XR Wrist Complete 3+ Views LeftCLINICAL INFORMATION: InjuryCOMPARISONS: None available.FINDINGS:AP, lateral, and oblique images of the left hand and left wrist were submitted.There is a comminuted fracture through the base of the fifth proximal phalanx. Intra- articular extension is noted. No other fracture is identified. The bones of the wrist are intact. 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.IMPRESSION:Comminuted intra-articular fracture through the base of the fifth proximal phalanx.Location: R16 Final Dictated by: MD Mccloud Adam FDictated DT/TM: 04/22/2019 10:26 amSigned by: MD Mccloud Adam FSigned (Electronic Signature): 04/22/2019 10:34 amUrinalysis with Microscopic if [id number] 07:43:34* Test Item Value Reference Range Comments UA Color (test code=UA Color) YELLO Yellow UA Appear (test code=UA Appear) CLEAR Clear UA pH (test code=UA pH) 5 UA Spec Grav (test code=UA Spec Grav) 1.010 1.001-1.035 UA Glucose (test code=UA Glucose) NEG Negative UA Ketones (test code=UA Ketones) NEG Negative UA Blood (test code=UA Blood) NEG Negative UA Protein (test code=UA Protein) NEG Negative UA Bili (test code=UA Bili) NEG Negative UA Urobilinogen (test code=UA Urobilinogen) 0.2 mg/dL UA Nitrite (test code=UA Nitrite) NEG Negative UA Leuk Est (test code=UA Leuk Est) NEG Negative UA Micro Ind? (test code=UA Micro Ind?) Not Indicated Not Indicated Result created by rule [email or web address] Drugs of Abuse Urine [id number] 07:32:25* Test Item Value Reference Range Comments Amphetamine Screen Ur (test code=Amphetamine Screen Ur) Negative Negative For diagnostic purposes only. Positive results should always be assessed in conjunction with a patient's medical history. Barbiturate Screen Ur (test code=Barbiturate Screen Ur) Negative Negative Benzodiazepines Ur (test code=Benzodiazepines Ur) Negative Negative Cocaine Screen Ur (test code=Cocaine Screen Ur) Negative Negative U Methadone (test code=U Methadone) Negative Negative Opiate Screen Ur (test code=Opiate Screen Ur) Negative Negative U PCP Scrn (test code=U PCP Scrn) Negative Negative U Propoxyphene (test code=U Propoxyphene) Negative Negative Cannabinoid Screen Ur (test code=Cannabinoid Screen Ur) Negative Negative Comprehensive Metabolic [id number] 04:20:02* Test Item Value Reference Range Comments Sodium Level (test code=Sodium Level) 136.0 mmol/L 135.0-145.0 Potassium Level (test code=Potassium Level) 3.5 mmol/L 3.5-5.1 Chloride Level (test code=Chloride Level) 102 mmol/L 98-105 CO2 (test code=CO2) 22 mmol/L 22-29 Anion Gap (test code=Anion Gap) 12 mmol/L 7-16 BUN (test code=BUN) 14.20 mg/dL 6.00-20.00 Creatinine Level (test code=Creatinine Level) 1.10 mg/dL 0.50-0.90 BUN/Creat Ratio (test code=BUN/Creat Ratio) 13 Glucose Level (test code=Glucose Level) 96 mg/dL 70-115 Calcium Level (test code=Calcium Level) 8.9 mg/dL 8.3-10.5 Alk Phos (test code=Alk Phos) 65 U/L 35-104 Bilirubin Total (test code=Bilirubin Total) 0.5 mg/dL 0.1-0.9 Albumin Level (test code=Albumin Level) 3.8 g/dL 3.5-5.2 Protein Total (test code=Protein Total) 8.0 g/dL 6.4-8.3 ALT (test code=ALT) 10 U/L 1-33 AST (test code=AST) 19 U/L 1-32 Globulin (test code=Globulin) 4.2 g/dL 2.9-3.1 A/G Ratio (test code=A/G Ratio) 0.9 ratio Comprehensive Metabolic [id number] 04:20:02* Test Item Value Reference Range Comments Sodium Level (test code=Sodium Level) 136.0 mmol/L 135.0-145.0 Potassium Level (test code=Potassium Level) 3.5 mmol/L 3.5-5.1 Chloride Level (test code=Chloride Level) 102 mmol/L 98-105 CO2 (test code=CO2) 22 mmol/L 22-29 Anion Gap (test code=Anion Gap) 12 mmol/L 7-16 BUN (test code=BUN) 14.20 mg/dL 6.00-20.00 Creatinine Level (test code=Creatinine Level) 1.10 mg/dL 0.50-0.90 BUN/Creat Ratio (test code=BUN/Creat Ratio) 13 Glucose Level (test code=Glucose Level) 96 mg/dL 70-115 Calcium Level (test code=Calcium Level) 8.9 mg/dL 8.3-10.5 Alk Phos (test code=Alk Phos) 65 U/L 35-104 Bilirubin Total (test code=Bilirubin Total) 0.5 mg/dL 0.1-0.9 Albumin Level (test code=Albumin Level) 3.8 g/dL 3.5-5.2 Protein Total (test code=Protein Total) 8.0 g/dL 6.4-8.3 ALT (test code=ALT) 10 U/L 1-33 AST (test code=AST) 19 U/L 1-32 Globulin (test code=Globulin) 4.2 g/dL 2.9-3.1 A/G Ratio (test code=A/G Ratio) 0.9 ratio eGFR AA (test code=eGFR AA) >60 mL/min/1.73 m2 eGFR (estimated Glomerular Filtration Rate) is an estimated value, calculated from the patient's serum creatinine using the MDRD equation. It is NOT the patient's actual GFR. The eGFR provides a more clinically useful measure of kidney disease than serum creatinine alone.This calculation takes sex and race into account, if the information is provided. If the race is not provided, and the patient is -[place], multiply by 1.212. If sex is not provided, and the patient is female, multiply by 0.742. Results for patients <18 years of age have not been validated by the MDRD study and should be interpreted with caution. eGFR Result Interpretation:eGFR > or=60 is in the Normal RangeeGFR < 60 may mean kidney diseaseeGFR < 15 may mean kidney failure Ranges recommended by the National Kidney Foundation, http://nkdep.nih.gov Creatine [id number] 04:20:02* Test Item Value Reference Range Comments CK (test code=CK) 61 U/L 26-192 Pro B Natriuretic [id number] 04:20:02* Test Item Value Reference Range Comments NT-proBNP (test code=NT-proBNP) 33 pg/mL 0-124 Troponin [id number] 04:20:02* Test Item Value Reference Range Comments Troponin-T (test code=Troponin-T) <0.010 ng/mL 0.000-0.009 within normal rangeThe 99th percentile URL for the assay is< 0.01ng/ml. A rise and fall in ROHITH with at least one value above the 99th percentile with clinical evidence of myocardial ischemia would support the diagnosis of AMI. A delta of at least 20% is recommended to access acute changes in results above the 99th percentile in serial measurements. Stable ROHITH levels (<20% delta) above the 99th percentile URL would support a diagnosis of chronic myocardial injury.<0.01 ng/ml - No evidence of Myocardial Injury > or equal to 0.01 ng/ml - Suspected Myocardial Injury Comprehensive Metabolic [id number] 04:20:02* Test Item Value Reference Range Comments Sodium Level (test code=Sodium Level) 136.0 mmol/L 135.0-145.0 Potassium Level (test code=Potassium Level) 3.5 mmol/L 3.5-5.1 Chloride Level (test code=Chloride Level) 102 mmol/L 98-105 CO2 (test code=CO2) 22 mmol/L 22-29 Anion Gap (test code=Anion Gap) 12 mmol/L 7-16 BUN (test code=BUN) 14.20 mg/dL 6.00-20.00 Creatinine Level (test code=Creatinine Level) 1.10 mg/dL 0.50-0.90 BUN/Creat Ratio (test code=BUN/Creat Ratio) 13 Glucose Level (test code=Glucose Level) 96 mg/dL 70-115 Calcium Level (test code=Calcium Level) 8.9 mg/dL 8.3-10.5 Alk Phos (test code=Alk Phos) 65 U/L 35-104 Bilirubin Total (test code=Bilirubin Total) 0.5 mg/dL 0.1-0.9 Albumin Level (test code=Albumin Level) 3.8 g/dL 3.5-5.2 Protein Total (test code=Protein Total) 8.0 g/dL 6.4-8.3 ALT (test code=ALT) 10 U/L 1-33 AST (test code=AST) 19 U/L 1-32 Globulin (test code=Globulin) 4.2 g/dL 2.9-3.1 A/G Ratio (test code=A/G Ratio) 0.9 ratio eGFR AA (test code=eGFR AA) >60 mL/min/1.73 m2 eGFR (estimated Glomerular Filtration Rate) is an estimated value, calculated from the patient's serum creatinine using the MDRD equation. It is NOT the patient's actual GFR. The eGFR provides a more clinically useful measure of kidney disease than serum creatinine alone.This calculation takes sex and race into account, if the information is provided. If the race is not provided, and the patient is -[place], multiply by 1.212. If sex is not provided, and the patient is female, multiply by 0.742. Results for patients <18 years of age have not been validated by the MDRD study and should be interpreted with caution. eGFR Result Interpretation:eGFR > or=60 is in the Normal RangeeGFR < 60 may mean kidney diseaseeGFR < 15 may mean kidney failure Ranges recommended by the National Kidney Foundation, http://nkdep.nih.gov eGFR Non-AA (test code=eGFR Non-AA) 51.38 mL/min/1.73 m2 eGFR (estimated Glomerular Filtration Rate) is an estimated value, calculated from the patient's serum creatinine using the MDRD equation. It is NOT the patient's actual GFR. The eGFR provides a more clinically useful measure of kidney disease than serum creatinine alone.This calculation takes sex and race into account, if the information is provided. If the race is not provided, and the patient is -[place], multiply by 1.212. If sex is not provided, and the patient is female, multiply by 0.742. Results for patients <18 years of age have not been validated by the MDRD study and should be interpreted with caution. eGFR Result Interpretation:eGFR > or=60 is in the Normal RangeeGFR < 60 may mean kidney diseaseeGFR < 15 may mean kidney failure Ranges recommended by the National Kidney Foundation, http://nkdep.nih.gov Partial Thromboplastin [id number] 04:11:36* Test Item Value Reference Range Comments Partial Thromboplastin Time (test code=Partial Thromboplastin Time) 29.60 seconds 24.39-37.25 Prothrombin Time and [id number] 04:11:35* Test Item Value Reference Range Comments Prothrombin Time (test code=Prothrombin Time) 13.4 seconds 9.8-13.4 INR (test code=INR) 1.2 ratio 0.6-1.2 Complete Blood Count with [id number] 03:55:26* Test Item Value Reference Range Comments WBC (test code=WBC) 3.9 x10 4.4-10.5 RBC (test code=RBC) 3.76 x10 3.75-5.20 Hgb (test code=Hgb) 10.9 g/dL 12.2-14.8 MCV (test code=MCV) 92.60 fL 80.00-100.00 Hct (test code=Hct) 34.8 % 36.5-44.4 MCHC (test code=MCHC) 31.30 g/dL 32.00-37.50 RDW CV (test code=RDW CV) 12.2 % 11.5-14.5 MCH (test code=MCH) 29.0 pg 27.0-32.5 Platelets (test code=Platelets) 195.0 x10 140.0-440.0 MPV (test code=MPV) 10.5 fL Slide Review (test code=Slide Review) Auto Auto Result created by [email or web address] nRBC (test code=nRBC) 0 NRBC Abs (test code=NRBC Abs) 0.00 x10 IPF (test code=IPF) 0 % Automated [id number] 03:55:26* Test Item Value Reference Range Comments Neutro Auto (test code=Neutro Auto) 46.0 % 36.0-70.0 Lymph Auto (test code=Lymph Auto) 41.7 % 12.0-44.0 Hendry Auto (test code=Hendry Auto) 8.2 % 0.0-11.0 Eos, Auto (test code=Eos, Auto) 3.3 % 0.0-7.0 Basophil Auto (test code=Basophil Auto) 0.3 % 0.0-2.0 Neutro Absolute (test code=Neutro Absolute) 1.8 x10 1.6-7.4 Lymph Absolute (test code=Lymph Absolute) 1.63 x10 .50-4.60 Hendry Absolute (test code=Hendry Absolute) .32 x10 .00-1.20 Eos Absolute (test code=Eos Absolute) 0.13 x10 0.00-0.74 Baso Absolute (test code=Baso Absolute) 0.01 x10 0.00-0.21 IG [id number] 03:55:26* Test Item Value Reference Range Comments IG (test code=IG) 0.5 % 0.0-5.0 IG Abs (test code=IG Abs) 0 x10 XR Chest 1 View [id number] 03:11:53Patient: VANESSA DUGGAN Date/Time04/12/2019 02:36 CDTReason for ExamCHF (Congestive Heart Failure), knownReportChest, one viewLOCATION CODE: R 16HISTORY: CHFCOMPARISON: NoneFINDINGS:Patchy left lower lobe airspace disease. No pleural effusion or pneumothorax. The cardiac silhouette is normal size. The bones are intact.IMPRESSION:Mild patchy left lower lobe airspace disease. Final Dictated by: MD Robison Roman PDictated DT/TM: 04/12/2019 3:11 amSigned by: MD Enriqueta, Eyal PSianita (Electronic Signature): 04/12/2019 3:11 amXR Shoulder Complete 2+ Views [id number] 15:58:44Patient: VANESSA DUGGAN Date/Time12/31/2018 15:32 CSTReason for ExamTraumaReportLocation: [id number] SHOUL LEÓN, 3 VIEWSHISTORY: TraumaFINDINGS:The acromioclavicular and glenohumeral joint s are maintained. No fracture or dislocation. Degenerative changes seen along th e greater tuberosity humeral head with sclerosis and subchondral cyst formation. There is a potential chronic heel sacs deformity.IMPRESSION:No fracture or disl ocation. Final Dictated by: MD Morales, Iris DT/TM: 12/31/2018 3:49 pmSigned by: MD Nielsen SankamanSigned (Electronic Signatur e): 12/31/2018 3:58 pmXR Ankle Complete 3+ Views [id number] 15:49:49 Patient: VANESSA DUGGAN am Date/Time12/31/2018 15:32 CSTReason for ExamTraumaReportLocation: [id number] ANKLE , 3 VIEWS and LEFT FOOT, 3 VIEWSHISTORY: TraumaFINDINGS:A healed distal fibular fracture is noted with a bridging calcification along the distal tibia and fibul a. Osteophyte formation versus chronic avulsion fractures are seen involving bot h the medial and lateral malleolus. The ankle mortise is preserved. No acute fra cture or dislocation. Mild soft tissue swelling about the ankle.Mild soft tissue swelling is also noted about the first MTP joint with spur formation. No fractu re or dislocation seen in the foot. A prominent plantar calcaneal spur is presen t along with a small Achilles tendon enthesophyte. Small calcification also seen along the heel measuring 5 mm.IMPRESSION:Mild soft tissue swelling. No acute fr acture or dislocation in the ankle or foot. Final Dictated by: Oksana pak MD, Iris DT/TM: 12/31/2018 3:47 pmSigned by: MD Nielsen SankamanSigned (Electronic Signature): 12/31/2018 3:49 pmXR Foot Complete 3+ Views [id number] 15:49:49Patient: VANESSA DUGGAN Date/Time12/31/2018 15:32 CSTReason for ExamTraumaReportLocation: [id number] ANKLE, 3 VIEWS and LEFT FOOT, 3 VIEWSHISTORY: TraumaFINDINGS:A healed distal fibular fracture is noted with a bridging calcification along the distal tibia and fibula. Osteophyte formation versus chronic avulsion fractures are seen involving both the medial and lateral malleolus. The ankle mortise is preserved. No acute fracture or dislocation. Mild soft tissue swelling about the ankle.Mild soft tissue swelling is also noted about the first MTP joint with spur formation. No fracture or dislocation seen in the foot. A prominent plantar calcaneal spur is present along with a small Achilles tendon enthesophyte. Small calcification also seen along the heel measuring 5 mm.IMPRESSION:Mild soft tissue swelling. No acute fracture or dislocation in the ankle or foot. Final Dictated by: MD Morales, Renéated DT/TM: 12/31/2018 3:47 pmSigned by: MD Nielsen SankamanSigned (Electronic Signature): 12/31/2018 3:49 [id number] [id number] 23:39:06CT ABDOMEN AND PELVIS WITH CONTRASTAfter-hours services performed at 2307 hours.LOCATION: [id number]: Upper abdominal pain and distention.COMPARISON: None.TECHNIQUE: Volumetric CT acquisition of the abdomen and pelvis afterintravenous administration of 100 mL Isovue-300. Axial images werereconstructed. One or more of the following radiation dose reductiontechniques was used: automated exposure control, adjustment of the mAand/or kV according to patient size, and/or utilization of iterativereconstructive technique.FINDINGS:The lung bases are clear. Visualized portions of the heart are normal.The liver is enlarged and diffusely hypodense, in keeping with hepaticsteatosis. No focal liver lesion is visualized. A 1.5 cm hypodenselesion in the spleen is mildly heterogeneous and measures appro [id number] Hounsfield units. The spleen is normal in size. The gallbladder,pancr eas, and adrenal glands are normal. The kidneys, ureters, and bladder are normal . The uterus is absent. Noovarian abnormality is visualized. The small bowel, ap pendix, and colonare normal. There is no lymphadenopathy, vascular abnormality, free air or fluid, orfocal osseous abnormality in the abdomen or pelvis.IMPRESSI ON:1. No acute abnormality in the abdomen or pelvis.2. Hepatic steatosis.3. Inde terminate 1.5 cm splenic lesion. If the patient has a history ofcancer, further evaluation with MRI is recommended; otherwise, considerfollow-up MRI in 6 months for reassessment.Comprehensive Metabolic [id number] 22:12:00* Test Item Value Reference Range Comments Sodium (test code=NA) 134 mmol/L 135-145 Potassium (test code=K) 4.3 mmol/L 3.5-5.1 Chloride (test code=CL) 96 mmol/L 98-105 Carbon Dioxide (test code=CO2) 29 mmol/L 22-29 Glucose (test code=GLU) 96 mg/dL 70-115 Blood Urea Nitrogen (test code=BUN) 7 mg/dL 6-20 Creatinine (test code=CREAT) 0.8 mg/dL 0.5-0.9 Calcium (test code=CA) 8.8 mg/dL 8.3-10.5 Prot Total (test code=TP) 8.5 g/dL 6.4-8.3 Albumin (test code=ALB) 3.5 g/dL 3.5-5.2 A/G Ratio (test code=AGRATIO) 0.7 Ratio Globulin (test code=GLOB) 5.0 2.9-3.1 Bili Total (test code=TBIL) 0.9 mg/dL 0.1-0.9 Alk Phos (test code=APHOS) 109 U/L 35-104 AST (test code=AST) 54 U/L 1-32 ALT (test code=ALT) 31 U/L 1-33 BUN/Creatinine Ratio (test code=BCRATIO) 8.8 Anion Gap (test code=AGAP) 9 mmol/L 7-16 Estimated GFR (test code=GFR) >60 mL/min/1.73m2 eGFR (estimated Glomerular Filtration Rate) is an estimated value,calculated from the patient's serum creatinine using the MDRD equation.It is NOT the patient's actual GFR. The eGFR provides a more clinicallyuseful measure of kidney disease than serum creatinine alone.This calculation takes sex and race into account, if the informationis provided. If the race is not provided, and the patient isAfrican-Guamanian, multiply by 1.212. If sex is not provided, and thepatient is female, multiply by 0.742. Results for patients <18 years ofage have not been validated by the MDRD study and should be interpretedwith caution.eGFR Result Interpretation:eGFR > or=60 is in the Normal RangeeGFR < 60 may mean kidney diseaseeGFR < 15 may mean kidney failureRanges recommended by the National Kidney Foundat ion,http://nkdep.nih.gov [id number] 22:12:00* Test Item Value Reference Range Comments Lipase (test code=LIP) 23 U/L 13-60 Urinalysis [id number] 22:02:00* Test Item Value Reference Range Comments Color (test code=COLOR) Marguerite Yellow,Straw,Pl yellow Clarity (test code=CLAR) Sl Cloudy Clear Specific [place] (test code=SPGR) 1.013 1.001-1.035 pH (test code=PH) 6.5 5.0-9.0 Ketone (test code=KET) Negative mg/dL Negative Glucose (test code=GLUCUR) Negative mg/dL Negative Protein (test code=PROT) 25 mg/dL Negative Bilirubin (test code=BILI) See IctoTest mg/dL Negative Occult Blood (test code=UDOB) Trace Negative Urobilinogen (test code=UROB) 12.0 mg/dL 0.2-1.0 Nitrite (test code=NIT) Negative Negative Leuk Esterase (test code=LEUK) Large Negative Ictotest (test code=ICTOTEST) Confirmed Negative Negative,Confirmed Negative Micros Exam (test code=MEXAM) Indicated Epithelial Cells (test code=EPI) 20-29 /LPF 0-30 WBC, Urine (test code=UWBC) 2-5 /HPF 0-5 RBC, Urine (test code=URBC) None Seen /HPF 0-5 Bacteria (test code=BACT) Moderate /HPF CBC with [id number] 21:54:00* Test Item Value Reference Range Comments WBC (test code=WBC) 4.5 K/cumm 4.4-10.5 RBC (test code=RBC) 4.72 M/cumm 3.75-5.20 Hemoglobin (test code=HGB) 13.8 gm/dL 12.2-14.8 Hematocrit (test code=HCT) 42.9 % 36.5-44.4 MCV (test code=MCV) 90.9 fL 80-100 MCH (test code=MCH) 29.3 pg 27.0-32.5 MCHC (test code=MCHC) 32.2 g/dL 32.0-37.5 RDW (test code=RDW) 12.5 % 11.5-14.5 Platelet Count (test code=PLTCT) 237 K/cumm 140-440 MPV (test code=MPV) 10.3 fL Diff Method (test code=DIFFM) Auto Neutrophil (test code=NEUT) 45.2 % 36-70 Lymphocyte (test code=LYMPH) 45.5 % 12-44 Monocyte (test code=MONO) 7.3 % 0-11 Eosinophil (test code=EOS) 1.3 % 0-7 Basophil (test code=BASO) 0.7 % 0-2 Neutro Abs (test code=ANEUT) 2.0 K/cumm 1.6-7.4 Lymph Abs (test code=ALYMPH) 2.0 K/cumm 0.5-4.6 Hendry Abs (test code=AMONO) 0.3 K/cumm 0.0-1.2 Eos Abs (test code=AEOS) 0.06 K/cumm 0.00-0.74 Baso Abs (test code=ABASO) 0.0 K/cumm 0.00-0.21
[2019-07-07 18:18] LABS: BASOPHILS % 0.3 % (0.0-1.0); EOSINOPHILS # (AUTO) 0.2 (0.0-0.4); EOSINOPHILS % 5.8 % (0.0-6.0); HEMATOCRIT 26.6 % (34.2-44.1); HEMOGLOBIN 8.2 g/dL (12.0-16.0); LYMPHOCYTES # (AUTO) 2.2 (1.0-3.2); LYMPHOCYTES % 54.9 % (18.0-39.1); MEAN CORPUSCULAR HGB CONC 30.8 g/dL (31-35); MEAN CORPUSCULAR VOLUME 97.4 fL (81-99); MONOCYTES # (AUTO) 0.3 (0.2-0.8); MONOCYTES % 7.3 % (4.4-11.3); NEUTROPHILS # (AUTO) 1.3 (2.1-6.9); NEUTROPHILS % 31.2 % (38.7-80.0); PLATELET COUNT 201 x10e3/uL (140-360); RED BLOOD COUNT 2.73 x10e6/uL (3.6-5.1); RED CELL DISTRIBUTION WIDTH 13.8 % (11.7-14.4)
[2019-07-07 18:35] LABS: ALANINE AMINOTRANSFERASE 26 IU/L (0-55); ALBUMIN 2.9 g/dL (3.5-5.0); ALBUMIN/GLOBULIN RATIO 0.7 (0.8-2.0); ALKALINE PHOSPHATASE 72 IU/L (40-150); ANION GAP 10.1 mmol/L (8-16); BLOOD UREA NITROGEN 15 mg/dL (7-26); BUN/CREATININE RATIO 17 (6-25); CALCIUM 8.3 mg/dL (8.4-10.2); CARBON DIOXIDE 26 mmol/L (22-29); CHLORIDE 105 mmol/L (98-107); CREATININE, SERUM 0.86 mg/dL (0.57-1.11); EST GLOMERULAR FILTRATION RATE > 60 ML/MIN (60-); GLUCOSE 98 mg/dL (74-118); POTASSIUM 4.1 mmol/L (3.5-5.1); SODIUM 137 mmol/L (136-145)
[2019-07-07 19:04] LABS: AMPHETAMINES SCREEN,URINE NEGATIVE (NEGATIVE); BENZODIAZEPINES SCREEN,URINE NEGATIVE (NEGATIVE); PHENCYCLIDINE SCREEN,URINE NEGATIVE (NEGATIVE)
--- NOTE | 2019-07-07 19:15 | NUR ---
PT READY FOR D/C, DR. COX EXPLAINING DIAGNOSIS AND RESULTS OF DIAGNOSTICS, PT STATES "I NEED TO STAY HERE FOR TWO DAYS BEFORE I GO BACK OUT THERE", PT INFORMED THAT SHE IS READY FOR D/C BUT REFUSING TO MOVE OFF STRETCHER AT THIS TIME, CALLED SECURITY AT THIS TIME.
[2019-07-07 19:16] VITALS: BP 138/90
--- NOTE | 2019-07-07 19:27 | Diagnostic Imaging Report ---
EXAM: CHEST 2 VIEWS DATE: 07/07/2019 5:29 PM INDICATION: ^chest pain ^[id number] ^[id number] COMPARISON: None FINDINGS: Lines and tubes: None. Multiple monitoring leads project on the chest. Heart size normal. No focal pulmonary opacity, pleural effusion or pneumothorax. Upper abdomen unremarkable. No acute bony abnormality. Deformity of the distal left clavicle likely related to old injury. IMPRESSION: No evidence for acute disease. Signed by: Dr. Solomon Celestin M.D. on 07/07/2019 7:24 PM
--- NOTE | 2019-07-07 19:40 | NUR ---
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 INFORMED CHARGE NURSE CATINA MCKEON.
== END 2019-07-07 19:45 | disposition home or self-care (01) ==
LOC: ER 17:26
DX: R07.89 Other chest pain (principal); R06.00 Dyspnea, unspecified; R60.9 Edema, unspecified
CPT/HCPCS: 36415; 71046; 80053; 80307; 80320; 83880; 84484; 85025; 93005; 99284